=== PATIENT | male | born 1950 | race Caucasian/White ===

== ENCOUNTER → 2016-05-15 | Outpatient (CLI) | payer OTHER ==
[~2016-05-15] MED LIST: ISOVUE-370 76% 100ML VIAL (Q9967) As Ordered ONE
--- NOTE | 2016-05-15 09:36 | REP ---
CT study of the chest with IV contrast: History: Restaging CT, recurrent non-small cell lung carcinoma. Comparison chest CT study February 18, 2016. CT contrast dose: 75 ml of Isovue 370 is administered intravenously by auto injector. Findings: Digital buckle wire inserter radiograph and CT images demonstrate that the patient is status post right lower lobectomy. This patient has known tracheobronchial metastatic polyps. There is a lesion in the left posterolateral tracheal wall on axial CT slice 23 of 125 in series 202 of today's study. This has enlarged somewhat since the February 18, 2016 study and currently measures 13 mm in craniocaudal span by 8 mm in medial to lateral dimension. Previously, this measured 7-8 mm in craniocaudal span. There is a tiny polypoid nodule along the lateral wall of the distal trachea at the origin of the left mainstem bronchus and another on the medial wall of the left mainstem bronchus, 2 cm from the lebron. These appear to be unchanged. The previous study showed two other mid left mainstem bronchial polyps which are not seen today. In addition, tiny polyps seen in the anterior and right lateral wall of the upper trachea are no longer apparent. There is some air in the upper esophagus but I do not see an esophageal mass lesion. There is a stable normal-sized precarinal lymph node in the mediastinum. No adenopathy has developed. A stable normal-sized right hilar lymph node is again seen unchanged. Postoperative pleuroparenchymal changes are noted on the right post lower lobectomy with some fibrotic changes in the upper lobe. No new pulmonary parenchymal mass lesion is seen. There is no visible adrenal mass lesion. There is a cyst in the upper pole of the left kidney again noted measuring 3.2 cm in greatest diameter. The visualized upper abdominal structures are otherwise unremarkable. No bony destructive lesion seen. Impression: One of the known metastatic tracheal wall polyps appears a little larger. Two others are unchanged and there are several small polyps which are no longer visible. No other new finding. Signed by Ari Borden MD 05/15/2016 02:38 P
== END ==
LOC: M RAD 07:28
PROVIDERS: ATTEND Internal Medicine Medical Oncology
DX: C34.90 Malignant neoplasm of unspecified part of unspecified bronchus or lung (principal)
CPT/HCPCS: 71260; Q9967

== ENCOUNTER 2016-06-29 11:44 | Outpatient (CLI) | payer OTHER, MEDICARE ==
[~2016-06-29] VITALS: Ht 175.3 cm; Wt 55.0 kg
[2016-06-29] MEDS ORDERED: ACETAMINOPHEN TAB 650MG DOSE (2X325MG) PO ONE (12:15)
[2016-06-29] MEDS ORDERED: diphenhydrAMINE 25 MG CAP PO ONE (12:15)
[2016-06-29 13:15] VITALS: BP 145/80
[2016-06-29] MEDS ORDERED: SODIUM CHLORIDE 0.9% INJ 10 ML SYR IV PRN (18:00)
== END 2016-06-29 18:50 ==
LOC: M OPCLI4PR 11:44 → M MSPAV 11:49 → M OPCLI4PR 18:50
PROVIDERS: ATTEND Internal Medicine Medical Oncology
DX: D64.81 Anemia due to antineoplastic chemotherapy (principal)
CPT/HCPCS: 36430; 86850; 86900; 86901; 86920; P9016

== ENCOUNTER → 2016-06-29 | Outpatient (REF) | payer OTHER | LOC: M LAB REF 09:36 | PROVIDERS: ATTEND Nurse Practitioner Family | DX: D64.81 Anemia due to antineoplastic chemotherapy (principal) ==

== ENCOUNTER → 2016-07-13 | Outpatient (CLI) | payer OTHER ==
--- NOTE | 2016-07-13 13:10 | REP ---
Clinical: History of squamous cell carcinoma. Technique: Axial contrast enhanced images from the thoracic inlet to the upper abdomen using 100 ml Isovue 370 intravenous contrast material with coronal and sagittal re-formations. Comparison: 05/15/2016, 02/18/2016. Findings: Pleuroparenchymal changes involving the right hemithorax are essentially unchanged. The left hemithorax is well-aerated and clear with a small apical medial stable bullous measuring approximately 2.4 cm maximal diameter. The mediastinum including heart/pericardium and thoracic aorta is unchanged. Subcentimeter lymph nodes are nonspecific and similar to prior examination. No focal osseous abnormality. Impression: Pleuroparenchymal changes involving the right hemithorax remain relatively stable. No obvious acute process or evidence for recurrence/metastatic disease. Consider PET/CT for further investigation and follow-up if necessary. Signed by Golden Harper MD 07/13/2016 01:01 P
== END ==
LOC: M RAD 12:30
PROVIDERS: ATTEND Nurse Practitioner Family
DX: C34.11 Malignant neoplasm of upper lobe, right bronchus or lung (principal)
CPT/HCPCS: 71260; Q9967

== ENCOUNTER → 2016-09-02 | Outpatient (CLI) | payer OTHER, MEDICARE ==
--- NOTE | 2016-09-02 16:34 | REP ---
PET/CT: History: Restaging lung carcinoma. 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 Tracheobronchial recurrence. Chemotherapy. Comparisons: Comparison prior study from 02/05/2016 and 05/03/2015. There is a chest CT study is from 07/13/2016. TECHNIQUE: 71 minutes following the intravenous injection of a 8.7 mCi dose of F-18 FDG, three-dimensional PET scintigraphy is acquired from the skull base to the proximal thighs. Triplanar noncontrast CT scanning is acquired through the same anatomic range for attenuation correction, and image registration with scan parameters optimized to minimize radiation exposure to the patient. PET scintigraphy and CT datasets were fused and displayed on a workstation with multiplanar and projection display capability. PET/CT Findings: I am informed by the technologist that just following the radiotracer injection there was some leakage of the patient's intravenous access device producing a skin contamination of the left upper extremity and shoulder region. There are small bilateral pleural effusions. This is new finding on the left and the left pleural effusion is larger than the right. No hypermetabolic FDG accumulation is seen in association with the left pleural fluid. The previously noted tracheobronchial metastatic foci are again visible and remain hypermetabolic. The largest of these is a posterior wall lesion in the upper trachea just above the level of the transverse aorta. There is had a FDG standard uptake value of 7.7 previously. Today this has increased to 13.9. The lesion appears increased in size from the 02/05/2016 prior study as well and measures 1.5 cm along the posterior wall of the trachea. A second smaller lesion is again seen along the right anterolateral wall of the trachea at the same level above the aortic arch. This appears a little larger than on the prior study as well. Maximum standard uptake value is 6.2. Two other hypermetabolic tracheobronchial nodules are seen involving the origin of the left mainstem bronchus and the mainstem bronchus itself. The largest of these has a maximum standard uptake value of 6.4. It appears to have progressed in size and avidity. No new focus of hypermetabolic tracheobronchial uptake is seen. There is a new pulmonary nodule in the right upper lobe on page 68 of [address] study done in conjunction with the PET scintigraphy. This measures 5 mm in size. There is discernible although not frankly hypermetabolic uptake within this nodule. Maximizing SUV value is only 1.5 however this is very suspicious for a metastasis due to the fact that it is new and shows some avidity. No other pulmonary parenchymal uptake is seen no other pulmonary nodule is seen. No new hilar or mediastinal hypermetabolic george uptake is observed. Postoperative changes are seen in the right chest. No abnormal adrenal uptake is observed. In the abdomen and pelvis, there is normal hepatic, splenic, gastrointestinal, and genitourinary FDG accumulation. There is another focus of skin contamination uptake over the left costal margin. This is not felt to be significant. Impression: 1. New small left pleural effusion. 2. PET scintigraphy and CT changes of progression including increase in PET avidity and size in several of the known tracheobronchial tree metastatic nodules as well as a new right upper lobe pulmonary nodule. Signed by Ari Borden MD 09/02/2016 04:36 P
== END ==
LOC: M PLARAD 07:34
PROVIDERS: ATTEND Internal Medicine Medical Oncology
DX: C34.11 Malignant neoplasm of upper lobe, right bronchus or lung (principal); R91.8 Other nonspecific abnormal finding of lung field; Z90.2 Acquired absence of lung [part of]; Z92.21 Personal history of antineoplastic chemotherapy; Z87.891 Personal history of nicotine dependence
CPT/HCPCS: 78815; A9552

== ENCOUNTER → 2016-09-25 | Outpatient (REF) | payer OTHER, MEDICARE | LOC: M LAB REF 12:17 | PROVIDERS: ATTEND Internal Medicine Medical Oncology | DX: C34.90 Malignant neoplasm of unspecified part of unspecified bronchus or lung (principal); C79.89 Secondary malignant neoplasm of other specified sites ==

== ENCOUNTER → 2016-10-23 | Outpatient (REF) | payer OTHER, MEDICARE ==
[~2016-10-23] MED LIST changes: +ALB2.5NEB INH; +ALBU83IN INH; +AUGM875T28 PO; +CHLO1.4S2 MT; +CHLORSP MT; +DEXT30SUSP PO; +GUAI5ELAC PO; -ISOVUE-370 76% 100ML VIAL (Q9967) As Ordered ONE; +LIDO2.5C15 EXT; +LORA1TAB12 PO; +MAPA325T3 PO; +MORP1SOL SL; +ONDA4TAB6 PO; +PRED10TA2 PO; +PROAAER10 INH; +ROBI30SU PO; +SPIR12.9 INH; +TRAN1.5D2 TD; +VICKLIQ PO
== END ==
LOC: M LAB REF 13:56
PROVIDERS: ATTEND Internal Medicine Medical Oncology
DX: C34.90 Malignant neoplasm of unspecified part of unspecified bronchus or lung (principal)

== ENCOUNTER 2016-12-02 15:08 | Inpatient (IN) | payer OTHER, MEDICARE ==
[~2016-12-02] VITALS: Ht 175.3 cm; Wt 51.4 kg
[2016-12-02] MEDS ORDERED: PROAAER10 INH (15:24)
[2016-12-02] MEDS ORDERED: IPRATROPIUM 0.5MG/ALBUTEROL 2.5MG INH SOL UD 3ML (DUONEB)(J7620) NEB ONE ×2 (16:30→17:30)
[2016-12-02 16:49] LABS: BASO % 0.1 % (0.0-1.0); EOS # 0.2 K/mm3 (0.0-0.50); EOS % 1.3 % (0.0-3.0); LARGE UNSTAINED CELL # 0.1 K/mm3 (0.0-0.4); LARGE UNSTAINED CELL % 1.1 % (0.0-4.0); LYMPH # 1.1 K/mm3 (1.5-4.5); LYMPH % 7.1 % (24.0-44.0); MEAN CORPUSCULAR HEMOGLOBIN 29.1 pg (27.0-33.0); MEAN CORPUSCULAR HGB CONC 32.1 g/dl (32.0-36.5); MEAN CORPUSCULAR VOLUME 90.8 fl (80.0-96.0); MONO # 0.5 K/mm3 (0.0-0.8); MONO % 3.7 % (0.0-5.0); NEUTROPHILS # 11.4 K/mm3 (1.8-7.7); NEUTROPHILS % 86.7 % (36.0-66.0); PLATELET COUNT, AUTOMATED 328 k/mm3 (150-450); RED CELL DISTRIBUTION WIDTH 14.6 % (11.5-14.5); WHITE BLOOD COUNT 13.1 K/mm3 (4.0-10.0)
[2016-12-02 16:55] LABS: INR 0.97
[2016-12-02 17:12] LABS: ALBUMIN 3.3 GM/DL (3.2-5.2); ALBUMIN/GLOBULIN RATIO 0.75 (1.00-1.93); ALKALINE PHOSPHATASE 94 U/L (45-117); ALT/SGPT 14 U/L (12-78); ANION GAP 11 MEQ/L (8-16); AST/SGOT 7 U/L (15-37); BILIRUBIN,DIRECT 0.1 MG/DL (0.0-0.2); BILIRUBIN,TOTAL 0.4 MG/DL (0.2-1.0); BLOOD UREA NITROGEN 11 MG/DL (7-18); CARBON DIOXIDE LEVEL 24 MEQ/L (21-32); CHLORIDE LEVEL 104 MEQ/L (98-107); CREATININE FOR GFR 0.92 MG/DL (0.70-1.30); FREE T4 1.25 NG/DL (0.76-1.46); GLOMERULAR FILTRATION RATE > 60.0 (>49); GLUCOSE, FASTING 114 MG/DL (80-110); POTASSIUM SERUM 4.9 MEQ/L (3.5-5.1); SODIUM LEVEL 139 MEQ/L (136-145); TOTAL PROTEIN 7.7 GM/DL (6.4-8.2)
[2016-12-02] MEDS ORDERED: methylPREDNISolone INJ 125 MG/2 ML VIAL (J2930) IV ONE (17:30)
[2016-12-02] MEDS ORDERED: ISOVUE-370 76% 100ML VIAL (Q9967) As Ordered ONE (17:33)
--- NOTE | 2016-12-02 18:02 | REP ---
TWO VIEW CHEST: Two views of the chest are performed and compared to prior studies of 03/02/2016 and 08/08/2015. Chronic pleural opacity is seen on the right with elevation of the right hemidiaphragm. There is no change since prior studies dating back to 08/08/2015. The heart is not enlarged. Mediastinal silhouette is unchanged. Right Mediport catheter is seen with the tip at the junction of the superior vena cava and right atrium. IMPRESSION: Chronic pleural and parenchymal opacities in the right lung, unchanged since 08/08/2015 exam. Signed by Bacilio Wilson MD 12/03/2016 01:29 P
--- NOTE | 2016-12-02 20:10 | REPUSA ---
HISTORY: SOB. Comparison is made to previous CT of chest dated 07/13/16. There is a reported history of squamous cell carcinoma in the lung and status post right partial lo bectomy. TECHNIQUE: Axial CT imaging of chest with sagittal and coronal reformatted imaging with CTA protocol, with intravenous contrast enhancement. DLP= 467.7 mGy-cm. FINDINGS: There is ectasia of the ascending thoracic aorta measuring 3.4 cm. There is no evidence of thoracic aortic aneurysm or dissection. No filling defects are seen in the pulmonary arteries and t here is no detectable evidence of pulmonary embolism. Mediastinal windows demonstrate prominent inspissated tracheal secretions at the thoracic inlet, resu lting in partial thoracic obstruction, best seen on images 46-54. There is increased soft tissue den sity extending from the right mainstem bronchus in the mediastinum along the right paraspinal region to the right lung base over a length of approximately 8 cm and thickness of 1.0 cm in the mediastinu m and 2.2 cm at the right medial lung base. There appears to be circumferential soft tissue mass den sity developed around the distal right mainstem bronchus seen on images 43 -48, and there is now comp lete occlusion of the right middle lobe bronchus with consolidation in the right middle lobe consiste nt with malignant obstruction and postobstructive consolidation and pneumonia. The hilar malignant m ass also circumferentially surrounds but does not occlude the right upper lobe bronchus. There is no significant change in the fibrocystic scarring at the right apex. Findings are consistent with recu rrent lung carcinoma, and follow-up with PET/CT scan is suggested if indicated. Left lung demonstrates a subpleural bullous lesion measuring 2.6 x 1.4 cm, and severe COPD, with no s uspicious pulmonary mass, consolidation, pneumothorax, or pleural effusion seen, with no significant change from previous examination. No lytic destructive skeletal metastatic lesions are seen in the chest. There is a benign 3 cm cyst in the left kidney. No other mass or abnormal fluid collection is seen in the upper abdomen. IMPRESSION: 1. No detectable evidence of pulmonary embolism or thoracic aortic dissection. There is 3.4 cm ectasia of the ascending thoracic aorta. 2. There is development of diffuse malignant mass extending from the mediastinum right mainstem bron chus around the right hilum now resulting in complete occlusion of the right middle lobe bronchus wit h postobstructive consolidation and pneumonia in the right middle lobe and circumferentially surround ing the right upper lobe without complete occlusion. Follow-up with PET/CT scan is suggested if hilda cated. 3. Severe COPD with no change in the left lung. 4. Prominent tracheal mucosal secretions partially obstructing the lower trachea.
[2016-12-02] MEDS ORDERED: cefTRIAXone SOD 1 GM in D5W MINI-BAG PLUS 50 ML IV ONE (20:15)
[2016-12-02] MEDS ORDERED: AZITHROMYCIN INJ 500 MG, VIAL MATE ADAPTER 1 EACH in D5W 250 ML IV ONE (20:15)
[2016-12-02] MEDS ORDERED: SPIR12.9 INH (20:24)
[2016-12-02] MEDS ORDERED: LIDO2.5C15 EXT (20:24)
--- NOTE | 2016-12-02 20:35 | ECGEPIP ---
Stationary ECG Study [facility] - ED Test Date: 2016-12-02 Pat Name: AISHA DOUGLAS Department: Room: - Gender: M Systems Requirements Planner: sb : 1950 Requested By: PINKY Steinberg Order Number: [id number] Reading MD: Juana Walker Measurements Intervals [place] Rate: 110 P: 40 IA: 148 QRS: -54 QRSD: 85 T: 46 QT: 303 QTc: 410 Interpretive Statements SINUS TACHYCARDIA MARKED LEFT AXIS DEVIATION LAFB NONSPECIFIC ST T WAVE CHANGES CW 12/02/16 RATE INCREASED Electronically Signed On 12-02-2016 20:35:25 EDT by Juana Walker
[2016-12-02] MEDS ORDERED: ONDANSETRON 4MG/2ML VIAL (J2405) IV PRN (20:45)
[2016-12-02] MEDS ORDERED: LEVALBUTEROL 1.25 MG/0.5 ML CONCENTRATE NEB INH PRN (21:45)
--- NOTE | 2016-12-02 22:20 | HPE ---
DATE OF ADMISSION: 12/02/2016 PRIMARY CARE PHYSICIAN: Dr. Ying ONCOLOGIST: Dr. Elena Chi PROPERTY ECONOMIST: Dr. Jaya Rankin HOSPITALIST ATTENDING: Dr. Luis Carlos Hauser CHIEF COMPLAINT: Shortness of breath, cough. HISTORY OF PRESENT ILLNESS: This is a 66-year-old male with history of squamous cell cancer of the lungs status post right lower lobectomy stage 2b, gold stage 2 chronic obstructive pulmonary disease, status post empyema has complication of squamous cell lung CA, nicotine dependence, remote history of malaria, and history of alcohol use with 50 pack year history of smoking and chews tobacco presents to the emergency room of 1-2 week history of shortness of breath with subjective fevers and initially a dry cough which progressed to white-yellow sputum production. He denies any chest pain, pressure or tightness, palpitations , lightheadedness, unable to ambulate without much difficulty, unable to ambulate from the bed to the bathroom due to increasing difficulty with trouble breathing. Denies any diarrhea, abdominal pain, nausea, or documented fevers. Patient's PET scan on 09/02/2016 shows progression including increase in avidity and size in several of the known tracheal bronchial tree metastatic nodules as well as a new right upper lobe pulmonary nodule. He is currently changed on a new treatment per the patient and was found to have occlusion of the right main stem bronchus on CT of the chest in the emergency room to evaluate his cough and worsening shortness of breath. Hospitalist service was called for admission for post obstructive pneumonia secondary to malignancy with extension of the malignant mass from the mediastinum to the right stem bronchus around the right hilum with complete occlusion of the right middle lobe bronchus. Patient has had decreased appetite, no weight loss of weight gain, no insomnia, generalized weakness with worsening shortness of breath, hospitalist service was called for management. PAST MEDICAL HISTORY: 1. Squamous cell CA of the lung status post right lower lobectomy; most likely stage 2b. 2. Chronic obstructive pulmonary disease gold stage 2 status post empyema as complication of squamous cell lung cancer status post right lower lobectomy, nicotine dependence, remote history of malaria, history of alcohol use. ALLERGIES: No known drug allergies. HOME MEDICATIONS: - Albuterol two puffs inhaled every 4 hours - Lidocaine 2.5% cream to extremities every 2 weeks - tiotropium Spiriva inhaled twice a day SOCIAL HISTORY: Patient is DO NOT RESUSCITATE, DO NOT INTUBATE. 50 pack year history of smoking, chews tobacco, has three cans of beer a day. No elicit drug use, he lives with nephew Freddy Noguera, health care proxy. He has cats, dogs, and ferrets, no birds at home. No hobbies involving dust or chemicals. 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 FAMILY HISTORY: Mother is alive, father from a stroke in his 60's. Both brother and sister from heart disease. He has brothers with esophageal and bladder carcinoma. REVIEW OF SYSTEMS: 12 point review of system obtained, all of which negative, aside from positive findings in history of present illness. PHYSICAL EXAMINATION: Temperature 98.9, pulse 106, respiratory rate 22, blood pressure 140/84, 90% on 2 liters nasal cannula. Patient was 86% on room air. GENERAL: Patient appears cachectic, older than his stated age with multiple missing teeth, disheveled appearing, mild respiratory distress, able to speak in full sentences, in tripod position. No stridor, tracheal deviation or mass, no jugular venous distention. THYROID: No thyromegaly or cervical lymphadenopathy. LUNGS: Diminished bilaterally with dullness to percussion on the right mid lung. Occasional wheezing. ABDOMEN: Scaphoid, soft, non-tender, non-distended. Positive bowel sounds. No hepatosplenomegaly. CHEST: Well healed scars on the right. No induration. EXTREMITIES: No peripheral edema. No cyanosis. SKIN: Pale, cool but dry. MUSCULOSKELETAL: Patient has muscle wasting. Gait and motor function is 5/5. EKG sinus rhythm, ventricular rate of 110 without axis deviation. White count 13, hemoglobin 12, hematocrit 40, platelet count 328, 85% neutrophils, sodium 139, potassium 4.9, chloride 104, bicarbonate 24, BUN 11, creatinine 0.92, glucose 114, calcium 9, T-bilirubin 0.4, direct bilirubin 0.1. AST 7, ALT 13, alkaline phosphatase 94, total CK 58, MB fraction 1, troponin less than 0.02. BNP 73.4. Total protein 7.7, albumin 3.3, lipase 69, carcinoembryonic antigen 0.8, TSH 0.82, free T4 1.25. IMAGING STUDY: Chest x-ray chronic pleural and parenchymal opacity in the right lung unchanged since 08/08/[address] of the chest ectasia of the ascending thoracic aorta measuring 3.4 cm. No filling defects. No evidence of pulmonary embolism. Mediastinal windows demonstrating prominent inspissated tracheal secretions at the thoracic inlet resulting in partial thoracic obstruction, increased soft tissue density extending from right main stem bronchus into the mediastinum along the right paraspinal region to the right lung base over a length of approximately 8 cm and thickness of 1 cm in the mediastinum and 2.2 cm at the right medial lung base. Circumferential soft tissue mass density around the distal right main bronchus seen on images #43 to #48 with now complete occlusion of the right middle lobe bronchus with consolidation in the right middle lobe consistent with malignant obstruction and post obstructive consolidation and pneumonia. The hilar malignant mass also circumferentially surrounds but does not occlude the right upper lobe bronchus. No significant change in fibrocystic scarring at the right apex consistent with recurrent lung carcinoma and follow up with PET CT is suggested if indicated. Left lung demonstrates a subpleural bolus lesion measuring 2.6 x 1.4 cm and severe chronic obstructive pulmonary disease with no suspicious mass, consolidation, pneumothorax or pleural effusion with no significant change from previous exam. No lytic destructive skeletal metastatic lesions in the chest. There is a benign 3 cm cyst in the kidney. No other mass or abnormal fluid collection is seen in the upper abdomen. ASSESSMENT AND PLAN: This is a 66-year-old DO NOT RESUSCITATE, DO NOT INTUBATE patient with history of at least stage 2b squamous cell carcinoma of the right lower lobe status post resection in May 2015 with right lower lobectomy breeching in the viscera pleural of the tumor possibly into the parietal viscera without chemo or radiation in the past. He was sent for consideration for radiation locally to Dr. Sotelo, who repeated PET imaging showing hypermetabolic activity in the airway proximal trachea and left main stem bronchus. His postoperative course was complicated by empyema, followed by Dr. Rankin, Dr. Elena Chi and Dr. Ying now presents with worsening shortness of breath for 1-two weeks and cough productive of sputum found to have advancement of his lung CA and recurrence on repeat PET scan on 08/2016 and diffuse malignant mass extension into the mediastinum right main stem bronchus around the right hilum with complete occlusion of the right middle lobe bronchus with post obstructive consolidation and pneumonia of the right middle lobe and circumferentially surrounding the right upper lobe without complete occlusion. Patient is admitted as an inpatient for two midnights, assigned to Dr. Luis Carlos Hauser for the following issues. 1. Sepsis due to postobstructive pneumonia. Recurrent squamous cell carcinoma of the right lower lobe with recurrence and extension into the right main stem bronchus around the right hilum resulting in complete occlusion of the right middle lobe bronchus and postobstructive pneumonia. Patient will be treated with full supportive care due to his immunocompromised status and risk for Methicillin-resistant Staphylococcus aureus (MRSA) . He will be started on vancomycin and Zosyn. If no significant improvement may add antifungal after a few days if patient is febrile with worsening white count. Pharmacy has been consulted to renally dose according to his creatinine clearance. The case has been discussed with Software Team Leader air conditioning insulation installer , Dr. Sanchez , who recommends medical oncology to assess if there would be any benefit from targeted radiation treatmen. Per Dr. Storey, oncologist air conditioning insulation installer, patient's oncologist, Dr. Elena Chi, will see him in consult in the morning. At this time, he will be given low dose solumedrol 40 mg iv bid, nebulizer treatments, supplemental oxygen for his acute hypoxia, monitor clinically overnight. He is DO NOT RESUSCITATE, DO NOT INTUBATE, this is with a Medical Orders for Life-Sustaining Treatment (MOLST) form signed, full DO NOT RESUSCITATE, health care proxy Freddy ValenciaVidalLara has been made aware and conversation has taken place in the emergency room about his advanced directives. 2. Severe chronic obstructive pulmonary disease. No change in the left lung. Continue nebulizer treatments. Supplemental oxygen. History of nicotine dependence with 50 pack year history of smoking, chews tobacco. Nebulizer treatments for now. History of alcohol use. Patient has not drank alcohol but monitor for alcohol withdrawal. 3. Deep vein thrombosis prophylaxis with subcutaneous Heparin. 4. Protonix for GI prophylaxis. Patient will be assigned to Dr. Luis Carlos Hauser at 7:00 in the morning on 12/03/2016. CODE STATUS: DO NOT RESUSCITATE. DO NOT INTUBATE. MTDD
[2016-12-02 23:30] VITALS: BP 138/78
--- NOTE | 2016-12-02 23:44 | PHACANCOPD ---
PHARMACY VANCOMYCIN DOSING Pt Demographics Demographics Patient Age:66 , Weight:52.720 , Gender: male Adjusted Body Weight Events Past 24 Hours Events Past 24 Hours: NO: Dialysis, Diuretic Therapy, Change in CrCl, Fever, Elevation in WBC, Pending Diagnostics, Pending Procedures, Other Vancomycin Vancomycin Target Ranges: 15-20 mcg/ml Vancomycin Load Y/N: Yes Load Dose Date Time Vancomycin Load Dose: 1GM Date: 12/03 Time: 2AM Vancomycin Dose Date: 12/03/16. Current Vancomycin Dose: [750 MG IV Q12H start 08:00] Intermittent Dosing?: No Labs Labs Laboratory Tests 12/02/16 16:29 Red Blood Count 4.41, Mean Corpuscular Volume 90.8, Mean Corpuscular Hemoglobin 29.1, Mean Corpuscular Hemoglobin Concent 32.1, Red Cell Distribution Width 14.6 H, Neutrophils (%) (Auto) 86.7 H, Lymphocytes (%) (Auto) 7.1 L, Monocytes ( %) (Auto) 3.7, Eosinophils (%) (Auto) 1.3, Basophils (%) (Auto) 0.1, Neutrophils # (Auto) 11.4 H, Lymphocytes # (Auto) 1.1 L, Monocytes # (Auto) 0.5 , Eosinophils # (Auto) 0.2, Basophils # (Auto) 0.0 Creatinine Clearance Date:12/02/16. Creatinine Clearance: . Assessment and Plan Maintaining Current Dose?: No Reason for dose change: Other Pharmacist Note Pharmacist Note Date: 12/02/16. Pharm.D. 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 ZOSYN 3.375GM IV Q6H start at 00:00 12/03 THEN VANCO 1GM LOAD 2AM 12/03/16 FOLLOWED BY 750MG IV Q12H STARTING AT 8AM 12/03/16 A VANCO TROUGH WILL FOLLOW ONCE AT [facility] Dec 02, 2016 23:44
[2016-12-03] MEDS: PIPERACILLIN/TAZOBACTAM SOD 3.375 GM in D5W MINI-BAG PLUS 50 ML IV SCH ×4 (01:22→18:45)
[2016-12-03] MEDS ORDERED: VANCOMYCIN HCL 1,000 MG, VIAL MATE ADAPTER 1 EACH in D5W 250 ML IV ONE (02:00)
[2016-12-03] MEDS: LEVALBUTEROL 1.25 MG/0.5 ML CONCENTRATE NEB INH SCH ×7 (03:35→23:31)
[2016-12-03 03:58] VITALS: BP 119/73
[2016-12-03] MEDS: methylPREDNISolone INJ 125 MG/2 ML VIAL (J2930) IV SCH ×2 (05:16→18:45)
[2016-12-03] MEDS: HEPARIN SOD (PORCINE) 5000 UNITS/ML VIAL SC SCH ×3 (05:17→21:26)
[2016-12-03 05:43] LABS: BASO % 0.1 % (0.0-1.0); EOS # 0.2 K/mm3 (0.0-0.50); EOS % 1.1 % (0.0-3.0); LARGE UNSTAINED CELL % 0.2 % (0.0-4.0); LYMPH # 0.9 K/mm3 (1.5-4.5); LYMPH % 5.3 % (24.0-44.0); MEAN CORPUSCULAR HEMOGLOBIN 29.3 pg (27.0-33.0); MEAN CORPUSCULAR HGB CONC 32.8 g/dl (32.0-36.5); MEAN CORPUSCULAR VOLUME 89.2 fl (80.0-96.0); MONO # 0.4 K/mm3 (0.0-0.8); MONO % 2.3 % (0.0-5.0); NEUTROPHILS # 14.8 K/mm3 (1.8-7.7); PLATELET COUNT, AUTOMATED 331 k/mm3 (150-450); RED CELL DISTRIBUTION WIDTH 14.6 % (11.5-14.5); WHITE BLOOD COUNT 16.2 K/mm3 (4.0-10.0)
[2016-12-03 06:00] LABS: ANION GAP 10 MEQ/L (8-16); BLOOD UREA NITROGEN 15 MG/DL (7-18); CALCIUM LEVEL 9.2 MG/DL (8.8-10.2); CARBON DIOXIDE LEVEL 23 MEQ/L (21-32); CHLORIDE LEVEL 103 MEQ/L (98-107); CREATININE FOR GFR 0.93 MG/DL (0.70-1.30); GLOMERULAR FILTRATION RATE > 60.0 (>49); GLUCOSE, FASTING 146 MG/DL (80-110); POTASSIUM SERUM 4.1 MEQ/L (3.5-5.1); SODIUM LEVEL 136 MEQ/L (136-145)
[2016-12-03] MEDS: VANCOMYCIN HCL 750 MG, VIAL MATE ADAPTER 1 EACH in D5W 250 ML IV SCH ×2 (07:40→20:37)
[2016-12-03 07:54] VITALS: BP 133/82
[2016-12-03] MEDS: PANTOPRAZOLE 40MG INJ (PROTONIX) (C9113) IV SCH (08:03)
[2016-12-03] MEDS ORDERED: TIOTROPIUM INHALER/CAPSULE (SPIRIVA) INH SCH (09:00)
[2016-12-03 12:13] VITALS: BP 118/70
--- NOTE | 2016-12-03 13:20 | IPNPDOC ---
Subjective Date Seen The patient was seen on 12/03/16. Subjective Chief Complaint/HPI Patient seen and examined at bedside this morning. States that his breathing is relatively comfortable while at rest. Denies any other acute complaints at this time. Objective Physical Examination General Exam: Positive: Alert, Cooperative, No Acute Distress, Other ( Bitemporal wasting noted) ENT Exam: Positive: Atraumatic, Mucous membr. 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 Presents with worsening shortness of breath and CT scan of the chest with recurrence and extension into the right mainstem bronchus around the right hilum resulting in complete occlusion of the right middle lobe bronchus in the background of severe COPD of the left lung. Sputum culture ordered Blood cultures pending The patient has been covered empirically with Vancomycin and Zosyn IV steroids have also been added given the patient's underlying history of COPD Cont levalbuterol, Spiriva At this time, the patient is resting comfortably on 2L of O2 via NC. SOB occurs mostly on any exertion. The patient follows with Dr. Chi of oncology, and she has been consulted for further delineation of treatment options Severe COPD Cont Levalbuterol, Spiriva IV Steroids DVT Prophylaxis Heparin HI Code Status: DNR/DNI VS, I&O, 24H, [facility] Vital Signs/I&O Vital Signs Date Time Temp Pulse Resp B/P (MAP) Pulse Ox O2 Delivery O2 Flow Rate FiO2 12/03/16 12:13 98.5 100 19 118/70 (86) 91 Nasal Cannula 2.0 I&O- Last 24 Hours up to 6 AM 12/03/16 06:00 Intake Total 550 ml Output Total 100 ml Balance 450 ml Laboratory Data 24H LABS Laboratory Tests 2 12/02/16 16:29: White Blood Count 13.1H, Red Blood Count 4.41, Hemoglobin 12.8L, Hematocrit 40.0L, Mean Corpuscular Volume 90.8, Mean Corpuscular Hemoglobin 29.1, Mean Corpuscular Hemoglobin Concent 32.1, Red Cell Distribution Width 14.6H, Platelet Count 328, Neutrophils (%) (Auto) 86.7H, Lymphocytes (%) (Auto) 7.1L, Monocytes (%) (Auto) 3.7, Eosinophils (%) (Auto) 1.3, Basophils (%) (Auto) 0.1, Neutrophils # (Auto) 11.4H, Lymphocytes # (Auto) 1.1L, Monocytes # (Auto) 0.5, Eosinophils # (Auto) 0.2, Basophils # (Auto) 0.0, Large Unclassified Cells % 1.1 , Large Unclassified Cells # 0.1, Prothrombin Time 13.0, Prothromb Time International Ratio 0.97, Activated Partial Thromboplast Time 34.3, Anion Gap 11 , Glomerular Filtration Rate > 60.0, Calcium Level 9.0, Aspartate Amino Transf ( AST/SGOT) 7L, Alanine Aminotransferase (ALT/SGPT) 14, Alkaline Phosphatase 94, Total Bilirubin 0.4, Direct Bilirubin 0.1, Total Creatine Kinase 58, Creatine Kinase MB 1.0, Creatine Kinase MB Relative Index 1.72, Troponin I < 0.02, B- Type Natriuretic Peptide 73.4, Total Protein 7.7, Albumin 3.3, Albumin/Globulin Ratio 0.75L, Lipase 69L, Thyroid Stimulating Hormone (TSH) 0.484, Free Thyroxine 1.25 12/03/16 00:26: Lactic Acid Level 3.1*H 12/03/16 03:57: 12/03/16 05:25: White Blood Count 16.2H, Red Blood Count 4.17L, Hemoglobin 12.2L, Hematocrit 37.3L, Mean Corpuscular Volume 89.2, Mean Corpuscular Hemoglobin 29.3, Mean Corpuscular Hemoglobin Concent 32.8, Red Cell Distribution Width 14.6H, Platelet Count 331, Neutrophils (%) (Auto) 91.0H, Lymphocytes (%) (Auto) 5.3L, Monocytes (%) (Auto) 2.3, Eosinophils (%) (Auto) 1.1, Basophils (%) (Auto) 0.1, Neutrophils # (Auto) 14.8H, Lymphocytes # (Auto) 0.9L, Monocytes # (Auto) 0.4, Eosinophils # (Auto) 0.2, Basophils # (Auto) 0.0, Large Unclassified Cells % 0.2 , Large Unclassified Cells # 0.0, Anion Gap 10, Glomerular Filtration Rate > 60.0, Calcium Level 9.2, Lactic Acid Followup at 4 Hours 1.2, Blood Urea Nitrogen 15, Creatinine 0.93, Sodium Level 136, Potassium Level 4.1, Chloride Level 103, Carbon Dioxide Level 23 CBC/BMP Laboratory Tests 12/02/16 16:29 Red Blood Count 4.41, Mean Corpuscular Volume 90.8, Mean Corpuscular Hemoglobin 29.1, Mean Corpuscular Hemoglobin Concent 32.1, Red Cell Distribution Width 14.6 H, Neutrophils (%) (Auto) 86.7 H, Lymphocytes (%) (Auto) 7.1 L, Monocytes ( %) (Auto) 3.7, Eosinophils (%) (Auto) 1.3, Basophils (%) (Auto) 0.1, Neutrophils # (Auto) 11.4 H, Lymphocytes # (Auto) 1.1 L, Monocytes # (Auto) 0.5 , Eosinophils # (Auto) 0.2, Basophils # (Auto) 0.0 12/03/16 05:25 Red Blood Count 4.17 L, Mean Corpuscular Volume 89.2, Mean Corpuscular Hemoglobin 29.3, Mean Corpuscular Hemoglobin Concent 32.8, Red Cell Distribution Width 14.6 H, Neutrophils (%) (Auto) 91.0 H, Lymphocytes (%) (Auto ) 5.3 L, Monocytes (%) (Auto) 2.3, Eosinophils (%) (Auto) 1.1, Basophils (%) ( Auto) 0.1, Neutrophils # (Auto) 14.8 H, Lymphocytes # (Auto) 0.9 L, Monocytes # (Auto) 0.4, Eosinophils # (Auto) 0.2, Basophils # (Auto) 0.0, Calcium Level 9.2 Microbiology Microbiology 12/03/16 Blood Culture, Received Pending 12/03/16 Blood Culture, Received Pending 12/03/16 Gram Stain - Final, Resulted 12/03/16 Sputum Culture, Resulted Pending 12/02/16 Influenza Virus Type A Antigen - Final, Complete 12/02/16 Influenza Virus Type B Antigen - Final, Complete KRISTEN MCFARLAND MD Dec 03, 2016 13:20
[2016-12-03 16:00] VITALS: BP 122/66
[2016-12-03 19:48] VITALS: BP 114/68
[2016-12-03] MEDS: TIOTROPIUM INHALER/CAPSULE (SPIRIVA) INH SCH (21:10)
[2016-12-03 23:59] VITALS: BP 124/72
[2016-12-04] MEDS: PIPERACILLIN/TAZOBACTAM SOD 3.375 GM in D5W MINI-BAG PLUS 50 ML IV SCH ×4 (00:11→17:03)
[2016-12-04] MEDS: LEVALBUTEROL 1.25 MG/0.5 ML CONCENTRATE NEB INH SCH ×6 (03:24→23:59)
[2016-12-04 04:00] VITALS: BP 126/80
[2016-12-04 05:36] LABS: EOS # 0.3 K/mm3 (0.0-0.50); EOS % 1.4 % (0.0-3.0); LARGE UNSTAINED CELL # 0.2 K/mm3 (0.0-0.4); LARGE UNSTAINED CELL % 0.7 % (0.0-4.0); LYMPH % 3.9 % (24.0-44.0); MEAN CORPUSCULAR HEMOGLOBIN 29.2 pg (27.0-33.0); MEAN CORPUSCULAR HGB CONC 32.6 g/dl (32.0-36.5); MEAN CORPUSCULAR VOLUME 89.6 fl (80.0-96.0); MONO # 0.6 K/mm3 (0.0-0.8); MONO % 2.7 % (0.0-5.0); NEUTROPHILS # 19.8 K/mm3 (1.8-7.7); NEUTROPHILS % 91.3 % (36.0-66.0); PLATELET COUNT, AUTOMATED 319 k/mm3 (150-450); RED CELL DISTRIBUTION WIDTH 15.1 % (11.5-14.5); WHITE BLOOD COUNT 21.6 K/mm3 (4.0-10.0)
[2016-12-04 05:48] LABS: ANION GAP 11 MEQ/L (8-16); BLOOD UREA NITROGEN 21 MG/DL (7-18); CALCIUM LEVEL 8.6 MG/DL (8.8-10.2); CARBON DIOXIDE LEVEL 24 MEQ/L (21-32); CHLORIDE LEVEL 103 MEQ/L (98-107); CREATININE FOR GFR 0.97 MG/DL (0.70-1.30); GLOMERULAR FILTRATION RATE > 60.0 (>49); GLUCOSE, FASTING 120 MG/DL (80-110); POTASSIUM SERUM 4.1 MEQ/L (3.5-5.1); SODIUM LEVEL 138 MEQ/L (136-145)
[2016-12-04] MEDS: methylPREDNISolone INJ 125 MG/2 ML VIAL (J2930) IV SCH (05:54)
[2016-12-04] MEDS: HEPARIN SOD (PORCINE) 5000 UNITS/ML VIAL SC SCH ×3 (05:55→22:07)
[2016-12-04] MEDS: SLF 3 ML SYR IV SCH ×3 (06:00→19:41)
[2016-12-04] MEDS: TIOTROPIUM INHALER/CAPSULE (SPIRIVA) INH SCH ×2 (07:09→19:18)
[2016-12-04] MEDS: PANTOPRAZOLE 40MG INJ (PROTONIX) (C9113) IV SCH (07:53)
[2016-12-04] MEDS: VANCOMYCIN HCL 750 MG, VIAL MATE ADAPTER 1 EACH in D5W 250 ML IV SCH ×2 (07:53→19:41)
[2016-12-04 08:00] VITALS: BP 127/67
[2016-12-04] MEDS ORDERED: SLF 3 ML SYR IV PRN (09:00)
--- NOTE | 2016-12-04 10:35 | PHACANCOPD ---
PHARMACY VANCOMYCIN DOSING Pt Demographics Demographics Patient Age:66 , Weight:51.400 , Gender: male Adjusted Body Weight Vancomycin Vancomycin Target Ranges: 15-20 mcg/ml Vancomycin Load Y/N: Yes Load Dose Date Time Vancomycin Load Dose: 1GM Date: 12/03 Time: 2AM Vancomycin Dose Date: 12/03/16. Current Vancomycin Dose: [750 MG IV Q12H start 08:00] Intermittent Dosing?: No Labs Micro Microbiology 12/03/16 Blood Culture - Preliminary, Resulted No growth after 24 hours . All specim... 12/03/16 Blood Culture - Preliminary, Resulted No growth after 24 hours . All specim... 12/03/16 Gram Stain - Final, Resulted 12/03/16 Sputum Culture, Resulted Pending 12/02/16 Influenza Virus Type A Antigen - Final, Complete 12/02/16 Influenza Virus Type B Antigen - Final, Complete Creatinine Clearance Date:12/02/16. Creatinine Clearance: . Assessment and Plan Maintaining Current Dose?: Yes Reason for dose change: No Dose Change Pharmacist Note Pharmacist Note 12/04/16: Day #2 empiric zosyn/vanco tx. Scr today remains stable, WBC remains elevated (pt is also on steroids), patient is afebrile, and cultures are still pending. The patient has no PMH of MRSA or vanco use here at [facility]. I will schedule a trough to be drawn today, 12/04/16 @1900. We will continue to monitor and adjust dosing if needed. Date: 12/02/16. Pharm.D. note:66YO MALE, 69", 52KG ADMITTED WITH HAND ICER, Hx LUNG Ca. ZOSYN 3.375GM IV Q6H start at 00:00 12/03 THEN VANCO 1GM LOAD 2AM 12/03/16 FOLLOWED BY 750MG IV Q12H STARTING AT 8AM 12/03/16 A VANCO TROUGH WILL FOLLOW ONCE AT [facility] Dec 04, 2016 10:34
[2016-12-04 12:00] VITALS: BP 111/59
--- NOTE | 2016-12-04 16:10 | IPNPDOC ---
Subjective Date Seen The patient was seen on 12/04/16. Subjective Chief Complaint/HPI Patient seen and examined at the bedside this morning. States that he is resting comfortably and denies any complaints of shortness of breath. Objective Physical Examination General Exam: Positive: Alert, Cooperative, No Acute Distress, Other ( Bitemporal wasting noted) ENT Exam: Positive: Atraumatic, Mucous membr. 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 Presents with worsening shortness of breath and CT scan of the chest with recurrence and extension into the right mainstem bronchus around the right hilum resulting in complete occlusion of the right middle lobe bronchus in the background of severe COPD of the left lung. I did discuss the patient's CT Scan results with Dr. Payne of Pulmonary--no role for Bronchoscopy at this time Sputum, Blood cultures unrevealing thus far Empiric Abx therapy continued Patient also started on Prednisone 50mg for possible Pneumonitis as per Dr. Chi of Oncology Cont levalbuterol, Spiriva At this time, the patient is resting comfortably on 2L of O2 via NC. SOB occurs mostly on any exertion. The patient follows with Dr. Chi of oncology, her input is appreciated Severe COPD Cont Levalbuterol, Spiriva PO Steroids DVT Prophylaxis Heparin SC Code Status: DNR/DNI Dispo-we will continue to monitor the patient's progress with empiric IV antibiotic therapy and by mouth steroids. PT on board for functional optimization. Anticipate discharge in the next 24-48 hours pending clinical improvement. VS, I&O, 24H, Fish[facility] Vital Signs/I&O Vital Signs Date Time Temp Pulse Resp B/P (MAP) Pulse Ox O2 Delivery O2 Flow Rate FiO2 12/04/16 12:10 Nasal Cannula 2.0 12/04/16 12:00 98.4 99 19 111/59 (76) 95 I&O- Last 24 Hours up to 6 AM 12/04/16 06:00 Intake Total 1115 ml Output Total 0 ml Balance 1115 ml Laboratory Data 24H LABS Laboratory Tests 2 12/04/16 05:21: White Blood Count 21.6H, Red Blood Count 3.71L, Hemoglobin 10.9L, Hematocrit 33.3L, Mean Corpuscular Volume 89.6, Mean Corpuscular Hemoglobin 29.2, Mean Corpuscular Hemoglobin Concent 32.6, Red Cell Distribution Width 15.1H, Platelet Count 319, Neutrophils (%) (Auto) 91.3H, Lymphocytes (%) (Auto) 3.9L, Monocytes (%) (Auto) 2.7, Eosinophils (%) (Auto) 1.4, Basophils (%) (Auto) 0.0, Neutrophils # (Auto) 19.8H, Lymphocytes # (Auto) 1.0L, Monocytes # (Auto) 0.6, Eosinophils # (Auto) 0.3, Basophils # (Auto) 0.0, Large Unclassified Cells % 0.7 , Large Unclassified Cells # 0.2, Anion Gap 11, Glomerular Filtration Rate > 60.0, Blood Urea Nitrogen 21H, Creatinine 0.97, Sodium Level 138, Potassium Level 4.1, Chloride Level 103, Carbon Dioxide Level 24, Calcium Level 8.6L CBC/BMP Laboratory Tests 12/04/16 05:21 Red Blood Count 3.71 L, Mean Corpuscular Volume 89.6, Mean Corpuscular Hemoglobin 29.2, Mean Corpuscular Hemoglobin Concent 32.6, Red Cell Distribution Width 15.1 H, Neutrophils (%) (Auto) 91.3 H, Lymphocytes (%) (Auto ) 3.9 L, Monocytes (%) (Auto) 2.7, Eosinophils (%) (Auto) 1.4, Basophils (%) ( Auto) 0.0, Neutrophils # (Auto) 19.8 H, Lymphocytes # (Auto) 1.0 L, Monocytes # (Auto) 0.6, Eosinophils # (Auto) 0.3, Basophils # (Auto) 0.0, Calcium Level 8.6 L Microbiology Microbiology 12/03/16 Blood Culture - Preliminary, Resulted No growth after 24 hours . All specim... 12/03/16 Blood Culture - Preliminary, Resulted No growth after 24 hours . All specim... 12/03/16 Gram Stain - Final, Resulted 8/10/17 Sputum Culture, Resulted Pending 12/02/16 Influenza Virus Type A Antigen - Final, Complete 12/02/16 Influenza Virus Type B Antigen - Final, Complete KRISTEN MCFARLAND MD Dec 04, 2016 16:10
[2016-12-04 20:00] VITALS: BP 115/61
--- NOTE | 2016-12-04 20:07 | PHACANCOPD ---
PHARMACY VANCOMYCIN DOSING Pt Demographics Demographics Patient Age:66 , Weight:51.400 , Gender: male Adjusted Body Weight Events Past 24 Hours Events Past 24 Hours: NO: Dialysis, Diuretic Therapy, Change in CrCl, Fever, Elevation in WBC, Pending Diagnostics, Pending Procedures, Other Vancomycin Vancomycin Target Ranges: 15-20 mcg/ml Vancomycin Load Y/N: Yes Load Dose Date Time Vancomycin Load Dose: 1GM Date: 12/03 Time: 2AM Vancomycin Dose Date: 12/07/16. Change current Vancomycin Dose to: [1gm IV Q12H start 04:00 ] Intermittent Dosing?: No Labs Labs Laboratory Tests Test 12/04/16 19:14 Vancomycin Level Trough 12.2 UG/ML (10.0-20.0) Laboratory Tests 12/04/16 05:21 Red Blood Count 3.71, Mean Corpuscular Volume 89.6, Mean Corpuscular Hemoglobin 29.2, Mean Corpuscular Hemoglobin Concent 32.6, Red Cell Distribution Width 15.1 , Neutrophils (%) (Auto) 91.3, Lymphocytes (%) (Auto) 3.9, Monocytes (%) (Auto) 2.7, Eosinophils (%) (Auto) 1.4, Basophils (%) (Auto) 0.0, Neutrophils # (Auto) 19.8, Lymphocytes # (Auto) 1.0, Monocytes # (Auto) 0.6, Eosinophils # (Auto) 0.3 , Basophils # (Auto) 0.0, Calcium Level 8.6 Micro Microbiology 12/03/16 Blood Culture - Preliminary, Resulted No growth after 24 hours . All specim... 12/03/16 Blood Culture - Preliminary, Resulted No growth after 24 hours . All specim... 12/03/16 Sputum Culture, Resulted Pending Creatinine Clearance Date:12/04/16. Creatinine Clearance: [>60 ml/min]. Assessment and Plan Maintaining Current Dose?: No Reason for dose change: Trough too low Pharmacist Note Pharmacist Note Date: 12/04/16. Pharm.D. 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 ZOSYN 3.375GM IV Q6H & VANCO 750MG IV Q12H. VANCO TROUGH THIS EVENING = 12.2 mcg/ml (GOAL 15-20 mcg/ml). SCR 0.97, CRCL >60 ml/min. BLOOD CULTURES ARE NEGATIVE AT THIS TIME 05/28, SPUTUM CULTURES REMAIN PENDING WE SHALL CHANGE HIS VANCO TO 1GM IV Q12H STARTING AT 4AM 12/05/16 AND CONSIDER A REPEAT A VANCO TROUGH WHEN AT [facility] Dec 04, 2016 20:07
[2016-12-04 23:59] VITALS: BP 121/71
[2016-12-05] MEDS: PIPERACILLIN/TAZOBACTAM SOD 3.375 GM in D5W MINI-BAG PLUS 50 ML IV SCH ×3 (01:49→18:19)
--- NOTE | 2016-12-05 03:18 | CR ---
DATE OF CONSULTATION: 12/04/2016 Dr. Luis Carlos Hauser requested medical oncology management recommendations for . Jakub Moreno admitted now with shortness of breath, pneumonia, likely cancer progression. Jakub Noguera is a 66-year-old man with history of squamous cell carcinoma involving the right lung diagnosed in 2015 in an outside hospital system, treated initially with right lower lobectomy in July 2015 at the [facility] ([place]). Six months later in January 2016 restaging PET demonstrated tracheal and left mainstem bronchial foci of recurrent cancer. Biopsy confirmed squamous cell carcinoma. He underwent six cycles of gemcitabine/carboplatin March 2016 through June 2016 with major response. However, in August 2016 there was evidence of recurrence with a new left pleural effusion (non hypermetabolic) and recurrent upper trachea, right anterior lateral trachea and left mainstem bronchi hypermetabolic foci. He started nivolumab immunotherapy 09/01/2016. He has been receiving this every 2 weeks. About 2 weeks ago, according to his nephew Freddy, his primary home based assistant, he began to have some coughing. This coughing has persisted and he came into the hospital 12/02, desaturated to 90% and nadiring at 86% with initial chest x-ray showing some chronic right lung opacities unchanged, but CT angiography showing interval development of a diffuse malignant mass extending from the mediastinum right mainstem bronchus around the right hilum with complete occlusion of the right middle lobe bronchus and postobstructive consolidation and pneumonia in the right middle lobe and circumferentially surrounding the right upper lobe without complete right upper lobe occlusion. Chronic obstructive pulmonary disease (COPD) changes. No pulmonary embolism. On antibiotics now for more than 24 hours, Jakub reports feeling better, his nephew Freddy says he is coughing much less. He has oxygen nasal cannula flowing. Mr. Noguera appears the way he always appears in the office, which is very thin and somewhat unkempt, but cheerful. He speaks in full sentences and is sitting up eating his dinner. PHYSICAL EXAMINATION: Temperature 97.3, blood pressure 122/66, heart rate 105, respiratory rate 18, nasal cannula 2 liters. Decreased breath sounds in the right mid and lower lung vale with some air movement in the right upper lung vale. Clear to auscultation in the left lung field. Dullness to percussion in the right lower, right mid and lower lung vale. Cardiac: S1, S2, mild tachycardia. No gallop. Abdomen: Scaphoid and soft, nontender. Extremities: No edema or asymmetry. LABORATORY DATA: WBC 16, hemoglobin/hematocrit 12 and 37 respectively, platelets 331, neutrophilia 91%. Blood cultures drawn 12/03 without gross influenza, screen negative. IMPRESSION: Likely progressive squamous cell carcinoma of right lung originally diagnosed 2016 status post right lower lobectomy with early recurrence involving the trachea, lower trachea and left mainstem bronchus recently on second-line therapy with nivolumab (immunotherapy) after initially responding to palliative chemotherapy, but with progression on observation. Reviewing the imaging, this is most likely disease progression complicated by postobstructive pneumonia. However, it has to be borne in mind that autoimmune pneumonitis is a common complex complication of immunotherapy treatment and I am recommending high-dose steroid treatment with 50 mg of prednisone by mouth daily as short-term interval therapy in addition to antibiotics. It is notable Jakub is improved on antibiotics and minimal supplemental oxygen supporting postobstructive pneumonia as part of his acute process. Should he improve well enough to go home, I would recommend continuing him on high-dose prednisone on discharge with short interval followup with me in the office so that I can taper him down, re-image and consider whether pneumonitis is playing a role or this is all disease progression. If disease progression, Jakub would be a candidate for third-line treatment. Today spontaneously, he expressed interest in trying chemotherapy again. He is quite cachectic. This is his baseline status, and unkempt, but in fact his performance status has been excellent throughout treatment. This is the first complication he has had and as long as his performance status is zero or one, he is a reasonable candidate for additional therapy depending on how well he is able to recover from this pneumonia. Finally for an acute decompensation, I would consider bronchoscopy. This has been discussed informally with Dr. Sanchez by Dr. Hauser. However, mucous plugging has to be borne in mind for an acute decompensation in a patient like this. I will continue to follow during this hospitalization. PLAN: 1. As outlined above, high-dose steroids 50 mg prednisone by mouth daily. 2. Continue antibiotics. 3. Rapid pulmonary evaluation for acute decompensation and/or consider CT angiography. 4. If the patient shows clinical improvement, I would strongly recommend his discharge on high-dose steroids with early followup in my office. Janae Balderas, nurse navigator, can be contacted to help coordinate an early appointment. NICK
[2016-12-05] MEDS: LEVALBUTEROL 1.25 MG/0.5 ML CONCENTRATE NEB INH SCH ×5 (04:00→19:39)
[2016-12-05 05:34] LABS: BASO % 0.1 % (0.0-1.0); EOS % 0.2 % (0.0-3.0); LARGE UNSTAINED CELL # 0.1 K/mm3 (0.0-0.4); LYMPH # 1.7 K/mm3 (1.5-4.5); LYMPH % 10.7 % (24.0-44.0); MEAN CORPUSCULAR HEMOGLOBIN 28.7 pg (27.0-33.0); MEAN CORPUSCULAR HGB CONC 31.8 g/dl (32.0-36.5); MEAN CORPUSCULAR VOLUME 90.4 fl (80.0-96.0); MONO # 0.7 K/mm3 (0.0-0.8); MONO % 4.9 % (0.0-5.0); NEUTROPHILS # 12.2 K/mm3 (1.8-7.7); NEUTROPHILS % 83.1 % (36.0-66.0); PLATELET COUNT, AUTOMATED 322 k/mm3 (150-450); RED CELL DISTRIBUTION WIDTH 14.8 % (11.5-14.5); WHITE BLOOD COUNT 14.7 K/mm3 (4.0-10.0)
[2016-12-05 05:44] LABS: ANION GAP 9 MEQ/L (8-16); BLOOD UREA NITROGEN 21 MG/DL (7-18); CALCIUM LEVEL 8.3 MG/DL (8.8-10.2); CARBON DIOXIDE LEVEL 26 MEQ/L (21-32); CHLORIDE LEVEL 107 MEQ/L (98-107); CREATININE FOR GFR 0.99 MG/DL (0.70-1.30); GLOMERULAR FILTRATION RATE > 60.0 (>49); GLUCOSE, FASTING 95 MG/DL (80-110); POTASSIUM SERUM 3.4 MEQ/L (3.5-5.1); SODIUM LEVEL 142 MEQ/L (136-145)
[2016-12-05] MEDS: VANCOMYCIN HCL 1,000 MG, VIAL MATE ADAPTER 1 EACH in D5W 250 ML IV SCH ×2 (05:53→16:38)
[2016-12-05] MEDS: HEPARIN SOD (PORCINE) 5000 UNITS/ML VIAL SC SCH ×3 (05:53→20:51)
[2016-12-05] MEDS: SLF 3 ML SYR IV SCH ×3 (05:54→20:51)
[2016-12-05] MEDS ORDERED: POTASSIUM CHLORIDE 10 MEQ SR TABLET PO ONE (06:15)
[2016-12-05] MEDS: TIOTROPIUM INHALER/CAPSULE (SPIRIVA) INH SCH ×2 (07:04→21:00)
[2016-12-05 08:00] VITALS: BP 120/74
--- NOTE | 2016-12-05 09:56 | IPN ---
MEDICAL ONCOLOGY INPATIENT FOLLOWUP DATE OF SERVICE: 12/04/2016 Jakub is seated upright in bed watching television, says he feels about the same as yesterday on 2 liters nasal cannula. He has discussed treatment options with Dr. Hauser and understands he has an endobronchial, endotracheal recurrence of his lung cancer. He and I have gone over what the treatment options are, including palliative radiation for obstructive symptoms, systemic chemotherapy, or no treatment. I have recommended high-dose prednisone 50 mg by mouth daily as empiric treatment for pulmonary pneumonitis, which can be a immune-mediated side effect of PD-L1 inhibitors, such as he has been on for many weeks. I agree with continuing antibiotics as well in the acute setting. IMPRESSION: Squamous cell carcinoma of the lung status post right upper lobectomy with endotracheal, endobronchial recurrence on second-line therapy with pembrolizumab with evidence of progression complicated by post obstructive pneumonia. Possible contributing factor of pneumonitis secondary to checkpoint inhibitor medication. RECOMMENDATIONS: 1. Continue antibiotics. 2. Continue prednisone 50 mg by mouth. Discharge patient on prednisone, and I will manage taper. 3. I will continue to discuss with the patient palliative treatment options, including systemic treatment, possible palliative radiation, but I would reserve radiation for progressive symptoms. As he is improving on antibiotics, I would hold this thought for the time being. MTDD
[2016-12-05] MEDS: PANTOPRAZOLE 40MG INJ (PROTONIX) (C9113) IV SCH (09:58)
[2016-12-05] MEDS: predniSONE 50 MG TAB PO SCH (09:58)
--- NOTE | 2016-12-05 11:51 | IPNPDOC ---
Subjective Date Seen The patient was seen on 12/05/16. Subjective Chief Complaint/HPI Patient seen and examined at the bedside this morning. States that he is resting comfortably, and is in no acute respiratory distress while at rest. Denies any acute overnight complaints at this time. Objective Physical Examination General Exam: Positive: Alert, Cooperative, No Acute Distress, Other ( Bitemporal wasting noted) ENT Exam: Positive: Atraumatic, Mucous membr. 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 Presents with worsening shortness of breath and CT scan of the chest with recurrence and extension into the right mainstem bronchus around the right hilum resulting in complete occlusion of the right middle lobe bronchus in the background of severe COPD of the left lung. I did discuss the patient's CT Scan results with Dr. Payne of Pulmonary--no role for Bronchoscopy at this time Sputum, Blood cultures unrevealing thus far Empiric Abx therapy continued Patient also on Prednisone 50mg for possible Pneumonitis as per Dr. Chi of Oncology--we will down taper this moving forward Cont levalbuterol, Spiriva At this time, the patient is resting comfortably on 2L of O2 via NC. SOB occurs mostly on any exertion. The patient follows with Dr. Chi of oncology, her input is appreciated Acute hypoxic failure 2/2 Progression of Squamos Cell Ca of the Lung Severe COPD Cont Levalbuterol, Spiriva PO Steroids DVT Prophylaxis Heparin SC Code Status: DNR/DNI Long-term prognosis poor Dispo-we will continue to monitor the patient's progress with empiric IV antibiotic therapy and by mouth steroids. PT on board for functional optimization. Anticipate discharge in the next 24-48 hours pending clinical improvement. VS, I&O, 24H, Fishbone Vital Signs/I&O Vital Signs Date Time Temp Pulse Resp B/P (MAP) Pulse Ox O2 Delivery O2 Flow Rate FiO2 12/05/16 09:56 Nasal Cannula 1.0 12/05/16 08:00 98.9 93 18 120/74 (46) 90 I&O- Last 24 Hours up to 6 AM 12/05/16 06:00 Intake Total 1120 ml Output Total 300 ml Balance 820 ml Laboratory Data 24H LABS Laboratory Tests 2 12/04/16 19:14: Vancomycin Level Trough 12.2 12/05/16 05:03: White Blood Count 14.7H, Red Blood Count 3.86L, Hemoglobin 11.1L, Hematocrit 34.9L, Mean Corpuscular Volume 90.4, Mean Corpuscular Hemoglobin 28.7, Mean Corpuscular Hemoglobin Concent 31.8L, Red Cell Distribution Width 14.8H, Platelet Count 322, Neutrophils (%) (Auto) 83.1H, Lymphocytes (%) (Auto) 10.7L, Monocytes (%) (Auto) 4.9, Eosinophils (%) (Auto) 0.2, Basophils (%) (Auto) 0.1, Neutrophils # (Auto) 12.2H, Lymphocytes # (Auto) 1.7, Monocytes # (Auto) 0.7, Eosinophils # (Auto) 0.0, Basophils # (Auto) 0.0, Large Unclassified Cells % 1.0 , Large Unclassified Cells # 0.1, Anion Gap 9, Glomerular Filtration Rate > 60.0 , Blood Urea Nitrogen 21H, Creatinine 0.99, Sodium Level 142, Potassium Level 3.4L, Chloride Level 107, Carbon Dioxide Level 26, Calcium Level 8.3L CBC/BMP Laboratory Tests 12/05/16 05:03 Red Blood Count 3.86 L, Mean Corpuscular Volume 90.4, Mean Corpuscular Hemoglobin 28.7, Mean Corpuscular Hemoglobin Concent 31.8 L, Red Cell Distribution Width 14.8 H, Neutrophils (%) (Auto) 83.1 H, Lymphocytes (%) (Auto ) 10.7 L, Monocytes (%) (Auto) 4.9, Eosinophils (%) (Auto) 0.2, Basophils (%) ( Auto) 0.1, Neutrophils # (Auto) 12.2 H, Lymphocytes # (Auto) 1.7, Monocytes # ( Auto) 0.7, Eosinophils # (Auto) 0.0, Basophils # (Auto) 0.0, Calcium Level 8.3 L Microbiology Microbiology 12/03/16 Blood Culture - Preliminary, Resulted No Growth after 48 hours. All Specime... 12/03/16 Blood Culture - Preliminary, Resulted No Growth after 48 hours. All Specime... 12/03/16 Gram Stain - Final, Resulted 12/03/16 Sputum Culture, Resulted Pending 12/02/16 Influenza Virus Type A Antigen - Final, Complete 12/02/16 Influenza Virus Type B Antigen - Final, Complete KRISTEN MCFARLAND MD Dec 05, 2016 11:51
[2016-12-05 16:00] VITALS: BP 138/92
[2016-12-05 20:00] VITALS: BP 142/78
[2016-12-05 23:59] VITALS: BP 148/84
[2016-12-06] MEDS: LEVALBUTEROL 1.25 MG/0.5 ML CONCENTRATE NEB INH SCH ×4 (00:03→11:01)
[2016-12-06] MEDS: PIPERACILLIN/TAZOBACTAM SOD 3.375 GM in D5W MINI-BAG PLUS 50 ML IV SCH ×2 (00:31→10:05)
[2016-12-06] MEDS: SLF 3 ML SYR IV SCH (04:43)
[2016-12-06] MEDS: VANCOMYCIN HCL 1,000 MG, VIAL MATE ADAPTER 1 EACH in D5W 250 ML IV SCH (04:43)
[2016-12-06] MEDS: HEPARIN SOD (PORCINE) 5000 UNITS/ML VIAL SC SCH (04:43)
[2016-12-06 05:11] LABS: BASO % 0.1 % (0.0-1.0); EOS # 0.1 K/mm3 (0.0-0.50); EOS % 1.1 % (0.0-3.0); LARGE UNSTAINED CELL # 0.2 K/mm3 (0.0-0.4); LARGE UNSTAINED CELL % 1.5 % (0.0-4.0); LYMPH # 1.8 K/mm3 (1.5-4.5); LYMPH % 16.5 % (24.0-44.0); MEAN CORPUSCULAR HEMOGLOBIN 29.5 pg (27.0-33.0); MEAN CORPUSCULAR HGB CONC 32.2 g/dl (32.0-36.5); MEAN CORPUSCULAR VOLUME 91.6 fl (80.0-96.0); MONO # 0.4 K/mm3 (0.0-0.8); MONO % 4.1 % (0.0-5.0); NEUTROPHILS # 7.7 K/mm3 (1.8-7.7); NEUTROPHILS % 76.7 % (36.0-66.0); PLATELET COUNT, AUTOMATED 305 k/mm3 (150-450); WHITE BLOOD COUNT 10.1 K/mm3 (4.0-10.0)
[2016-12-06 05:39] LABS: ANION GAP 10 MEQ/L (8-16); BLOOD UREA NITROGEN 17 MG/DL (7-18); CALCIUM LEVEL 8.4 MG/DL (8.8-10.2); CARBON DIOXIDE LEVEL 24 MEQ/L (21-32); CHLORIDE LEVEL 109 MEQ/L (98-107); CREATININE FOR GFR 0.91 MG/DL (0.70-1.30); GLOMERULAR FILTRATION RATE > 60.0 (>49); GLUCOSE, FASTING 103 MG/DL (80-110); POTASSIUM SERUM 3.4 MEQ/L (3.5-5.1); SODIUM LEVEL 143 MEQ/L (136-145)
[2016-12-06] MEDS: TIOTROPIUM INHALER/CAPSULE (SPIRIVA) INH SCH (07:20)
[2016-12-06] MEDS ORDERED: POTASSIUM CHLORIDE 10 MEQ SR TABLET PO ONE (07:45)
[2016-12-06 08:00] VITALS: BP 161/81
[2016-12-06] MEDS: predniSONE 50 MG TAB PO SCH (10:05)
[2016-12-06] MEDS: PANTOPRAZOLE 40MG INJ (PROTONIX) (C9113) IV SCH (10:05)
[2016-12-06 10:34] VITALS: BP 126/76
[2016-12-06] MEDS ORDERED: PRED10TA2 PO (11:44)
[2016-12-06] MEDS ORDERED: AUGM875T28 PO (11:44)
--- NOTE | 2016-12-06 15:16 | DS.PDOC ---
Discharge Summary General Date of Admission Dec 02, 2016 at 20:44 Date of Discharge 12/06/16 Specialist/Consultants Involve: Elena Chi MD Discharge Summary PROCEDURES PERFORMED DURING STAY: None. ADMITTING DIAGNOSES: 1. . Recurrence and extension of squamous cell lung carcinoma 2. . Post obstructive pneumonia 3. . Possible underlying radiation pneumonitis DISCHARGE DIAGNOSES: 1. . Recurrence and extension of squamous cell lung carcinoma 2. . Post obstructive pneumonia 3. . Possible underlying radiation pneumonitis COMPLICATIONS/CHIEF COMPLAINT: Lung Caner,Main Bronchus, Obstructive Pnemonia. HISTORY OF PRESENT ILLNESS: . 66-year-old male with past medical history of squamous cell carcinoma of the lung status post right lower lobectomy stage IIB,gold stage 2 chronic obstructive pulmonary disease, status post empyema has complication of squamous cell lung CA, nicotine dependence, remote history of malaria, and history of alcohol use with 50 pack year history of smoking and chews tobacco presented to the emergency room of 1-2 week history of shortness of breath with subjective fevers. The patient states that he has had worsening shortness of breath over the last 1-2 weeks which significantly limited his functional status. The patient recently had a PET scan done on 09/02/16 which showed progression of his underlying cancer including increase in avidity and size in several of the known tracheobronchial tree metastatic nodules as well as a new right upper lobe pulmonary nodule. A CT scan was performed in the ER, and this revealed postobstructive pneumonia secondary to malignancy with extension of the malignant mass from the mediastinum to the right stem bronchus around the right hilum with complete occlusion of the right middle lobe bronchus. The patient was subsequently admitted to the hospitalist service for further evaluation and management. During hospitalization, the patient was started on empiric antibiotic therapy. In addition, the pulmonary service was contacted regarding the patient's CAT scan results and possible bronchoscopy. As per pulmonary, bronchoscopy was not indicated in this patient's case. Dr. Chi of oncology was consulted as well. She recommended continuing antibiotics and starting the patient on a high-dose prednisone taper. The patient was started on empiric antibiotics as well as high -dose prednisone therapy. The patient states that his respiratory status has subsequently improved over the last 48 hours. At this time, the patient states that he is feeling much better and is eager to return home. The patient has been cleared by physical therapy. I have asked the patient to continue with the steroid taper, complete his course of antibiotics which have been switched over to by mouth, and to follow-up closely with Dr. Chi office within one week. In addition, I've advised the patient to follow-up with his primary care physician within one week. Should his condition worsen, or if he is to have an acute emergency he is to return to the ER for further evaluation and management. DISCHARGE MEDICATIONS: Please see below. ALLERGIES: Please see below. PHYSICAL EXAMINATION ON DISCHARGE: VITAL SIGNS: Please see below. General Exam: Positive: Alert, Cooperative, No Acute Distress, Other ( Bitemporal wasting noted) ENT Exam: Positive: Atraumatic, Mucous membr. moist/pink Neck Exam: Negative: JVD Chest Exam: Positive: Diminished Heart Exam: Positive: Rate Normal, Normal S1, Normal S2 Abdomen Exam: Positive: Soft, Negative: Tenderness Extremity Exam: Negative: Tenderness, Swelling Psych Exam: Positive: Oriented x 3 LABORATORY DATA: Please see below. IMAGING: HISTORY: SOB. Comparison is made to previous CT of chest dated 07/13/16. There is a reported history of squamous cell carcinoma in the lung and status post right partial lobectomy. TECHNIQUE: Axial CT imaging of chest with sagittal and coronal reformatted imaging with CTA protocol, with intravenous contrast enhancement. DLP= 467.7 mGy-cm. FINDINGS: There is ectasia of the ascending thoracic aorta measuring 3.4 cm. There is no evidence of thoracic aortic aneurysm or dissection. No filling defects are seen in the pulmonary arteries and there is no detectable evidence of pulmonary embolism. Mediastinal windows demonstrate prominent inspissated tracheal secretions at the thoracic inlet, resulting in partial thoracic obstruction, best seen on images 46-54. There is increased soft tissue density extending from the right mainstem bronchus in the mediastinum along the right paraspinal region to the right lung base over a length of approximately 8 cm and thickness of 1.0 cm in the mediastinum and 2.2 cm at the right medial lung base. There appears to be circumferential soft tissue mass density developed around the distal right mainstem bronchus seen on images 43 -48, and there is now complete occlusion of the right middle lobe bronchus with consolidation in the right middle lobe consistent with malignant obstruction and postobstructive consolidation and pneumonia. The hilar malignant mass also circumferentially surrounds but does not occlude the right upper lobe bronchus. There is no significant change in the fibrocystic scarring at the right apex. Findings are consistent with recurrent lung carcinoma, and follow-up with PET/CT scan is suggested if indicated. Left lung demonstrates a subpleural bullous lesion measuring 2.6 x 1.4 cm, and severe COPD, with no suspicious pulmonary mass, consolidation, pneumothorax, or pleural effusion seen, with no significant change from previous examination. No lytic destructive skeletal metastatic lesions are seen in the chest. There is a benign 3 cm cyst in the left kidney. No other mass or abnormal fluid collection is seen in the upper abdomen. IMPRESSION: 1. No detectable evidence of pulmonary embolism or thoracic aortic dissection. There is 3.4 cm ectasia of the ascending thoracic aorta. 2. There is development of diffuse malignant mass extending from the mediastinum right mainstem bronchus around the right hilum now resulting in complete occlusion of the right middle lobe bronchus with postobstructive consolidation and pneumonia in the right middle lobe and circumferentially surrounding the right upper lobe without complete occlusion. Follow-up with PET /CT scan is suggested if indicated. 3. Severe COPD with no change in the left lung. 4. Prominent tracheal mucosal secretions partially obstructing the lower trachea. PROGNOSIS: Long-term prognosis poor ACTIVITY: As tolerated. DIET: . Regular diet DISCHARGE PLAN: Home DISPOSITION: 01 Home, Self-Care. DISCHARGE INSTRUCTIONS: 1. . Follow-up with Dr. Chi of oncology within one week 2. . Follow-up with primary care physician within one week 3. . Return to the ER for any acute emergencies ITEMS TO FOLLOWUP ON ON OUTPATIENT: 1. . Complete antibiotic course, prednisone taper as prescribed DISCHARGE CONDITION: Stable. TIME SPENT ON DISCHARGE: Greater than 30 minutes. Vital Signs/I&Os Vital Signs Date Time Temp Pulse Resp B/P (MAP) Pulse Ox O2 Delivery O2 Flow Rate FiO2 12/06/16 10:34 96.8 94 20 126/76 (93) 94 Nasal Cannula 2.0 I&O- Last 24 Hours up to 6 AM 12/06/16 06:00 Intake Total 2630 ml Output Total 0 ml Balance 2630 ml Laboratory Data Labs 24H Laboratory Tests 2 12/06/16 04:48: White Blood Count 10.1H, Red Blood Count 3.84L, Hemoglobin 11.3L, Hematocrit 35.2L, Mean Corpuscular Volume 91.6, Mean Corpuscular Hemoglobin 29.5, Mean Corpuscular Hemoglobin Concent 32.2, Red Cell Distribution Width 15.0H, Platelet Count 305, Neutrophils (%) (Auto) 76.7H, Lymphocytes (%) (Auto) 16.5L, Monocytes (%) (Auto) 4.1, Eosinophils (%) (Auto) 1.1, Basophils (%) (Auto) 0.1, Neutrophils # (Auto) 7.7, Lymphocytes # (Auto) 1.8, Monocytes # (Auto) 0.4, Eosinophils # (Auto) 0.1, Basophils # (Auto) 0.0, Large Unclassified Cells % 1.5 , Large Unclassified Cells # 0.2 12/06/16 04:49: Anion Gap 10, Glomerular Filtration Rate > 60.0, Blood Urea Nitrogen 17, Creatinine 0.91, Sodium Level 143, Potassium Level 3.4L, Chloride Level 109H, Carbon Dioxide Level 24, Calcium Level 8.4L CBC/BMP Laboratory Tests 12/06/16 04:48 Red Blood Count 3.84 L, Mean Corpuscular Volume 91.6, Mean Corpuscular Hemoglobin 29.5, Mean Corpuscular Hemoglobin Concent 32.2, Red Cell Distribution Width 15.0 H, Neutrophils (%) (Auto) 76.7 H, Lymphocytes (%) (Auto ) 16.5 L, Monocytes (%) (Auto) 4.1, Eosinophils (%) (Auto) 1.1, Basophils (%) ( Auto) 0.1, Neutrophils # (Auto) 7.7, Lymphocytes # (Auto) 1.8, Monocytes # (Auto ) 0.4, Eosinophils # (Auto) 0.1, Basophils # (Auto) 0.0 12/06/16 04:49 Calcium Level 8.4 L Microbiology Microbiology 12/03/16 Blood Culture - Preliminary, Resulted No Growth after 72 hours. All specime... 12/03/16 Blood Culture - Preliminary, Resulted No Growth after 72 hours. All specime... 12/03/16 Gram Stain - Final, Complete 12/03/16 Sputum Culture - Final, Complete Pasteurella Multocida 12/02/16 Influenza Virus Type A Antigen - Final, Complete 12/02/16 Influenza Virus Type B Antigen - Final, Complete Discharge Medications Scheduled (Lidocaine/Prilocaine 2.5-2.5 %) 1 Cre Cre, 1 CRE EXT Q2WK, (Reported) PUTS ON PORT BEFORE INJECTION EVERY 2 WEEKS Amoxicillin/Clavulanate Potas (Augmentin 875-125 mg) 1 Tab Tab, 875 MG PO BID Prednisone (Prednisone) 10 Mg Tab, 10 MG PO TAPER Take 4 tabs daily x 3 days, then 3 tabs daily x 3 days, then 2 tabs daily x 3 days, then 1 tab daily x 3 days and stop Tiotropium [place] Monohydrate (Spiriva Respimat) 2.5 Mcg/Act Spr, 2 INHALATION INH BID, (Reported) Scheduled PRN Albuterol Sulfate (Proair Hfa) 108 Mcg/Act Aer, 2 PUFF INH Q4H PRN for SHORTNESS OF BREATH, (Reported) Allergies Coded Allergies: CI Pigment Blue 63 (Unverified Allergy, Intermediate, SOB, BURNED THROAT, 12/02/16) Chlorpheniramine (Unverified Allergy, Intermediate, SOB, BURNED THROAT, 12/02/16) Hydrocodone (Unverified Allergy, Intermediate, SOB, BURNED THROAT, 12/02/16) Red Dye (Unverified Allergy, Intermediate, SOB, BURNED THROAT, 12/02/16) Yellow Dye (Unverified Allergy, Intermediate, SOB, BURNED THROAT, 12/02/16) No Known Drug Allergy (Verified Allergy, Unknown, 03/02/16) KRISTEN MCFARLAND MD Dec 06, 2016 15:16
[2016-12-08 00:06] LABS: ORGANISM ID Not indicated. (.); SPECIMEN SOURCE Urine (.)
== END 2016-12-06 12:26 | disposition home or self-care (01) | DRG 180 ==
LOC: M ED 15:08 → M ED INP 20:44 → M PCU 23:28
PROVIDERS: ADMIT General Practice; ATTEND Internal Medicine
DX: C34.90 Malignant neoplasm of unspecified part of unspecified bronchus or lung (principal); J18.9 Pneumonia, unspecified organism; J70.0 Acute pulmonary manifestations due to radiation; J44.9 Chronic obstructive pulmonary disease, unspecified; F17.200 Nicotine dependence, unspecified, uncomplicated; Z66 Do not resuscitate; I77.810 Thoracic aortic ectasia; Z88.8 Allergy status to other drugs, medicaments and biological substances; Z79.899 Other long term (current) drug therapy; F17.220 Nicotine dependence, chewing tobacco, uncomplicated

== ENCOUNTER 2016-12-09 13:39 | Emergency (ER) | payer OTHER, MEDICARE ==
[~2016-12-09] VITALS: Ht 175.3 cm; Wt 52.3 kg
[~2016-12-09 13:39] MED LIST changes: -ALB2.5NEB INH; -ALBU83IN INH; -CHLO1.4S2 MT; -CHLORSP MT; -DEXT30SUSP PO; -GUAI5ELAC PO; -LORA1TAB12 PO; -MAPA325T3 PO; -MORP1SOL SL; -ONDA4TAB6 PO; -ROBI30SU PO; -TRAN1.5D2 TD; -VICKLIQ PO
[2016-12-09] MEDS ORDERED: methylPREDNISolone INJ 125 MG/2 ML VIAL (J2930) IV ONE (14:30)
[2016-12-09] MEDS: IPRATROPIUM 0.5MG/ALBUTEROL 2.5MG INH SOL UD 3ML (DUONEB)(J7620) NEB PRN ×2 (14:47→15:18)
[2016-12-09 14:52] LABS: ABG BASE EXCESS 1.8 (-2.0-2.0); ABG HCO3 25.3 MEQ/L (22.0-26.0); ABG PARTIAL PRESSURE CO2 36.2 mmHg (35.0-45.0); ABG PARTIAL PRESSURE O2 83.1 mmHg (75.0-100.0); ABG TOTAL CO2 26.5 MEQ/L (23.0-31.0); ABG pH (ARTERIAL) 7.463 UNITS (7.350-7.450)
[2016-12-09 15:10] LABS: ADD MANUAL DIFFER YES; MEAN CORPUSCULAR HEMOGLOBIN 29.3 pg (27.0-33.0); MEAN CORPUSCULAR HGB CONC 31.9 g/dl (32.0-36.5); MEAN CORPUSCULAR VOLUME 91.8 fl (80.0-96.0); PLATELET COUNT, AUTOMATED 376 k/mm3 (150-450); RED CELL DISTRIBUTION WIDTH 14.8 % (11.5-14.5); WHITE BLOOD COUNT 8.6 K/mm3 (4.0-10.0)
[2016-12-09 15:23] LABS: ALBUMIN/GLOBULIN RATIO 0.67 (1.00-1.93); ALKALINE PHOSPHATASE 79 U/L (45-117); ALT/SGPT 53 U/L (12-78); ANION GAP 10 MEQ/L (8-16); AST/SGOT 16 U/L (15-37); BILIRUBIN,DIRECT < 0.1 MG/DL (0.0-0.2); BILIRUBIN,TOTAL 0.2 MG/DL (0.2-1.0); BLOOD UREA NITROGEN 16 MG/DL (7-18); CARBON DIOXIDE LEVEL 27 MEQ/L (21-32); CHLORIDE LEVEL 103 MEQ/L (98-107); CREATININE FOR GFR 0.94 MG/DL (0.70-1.30); GLOMERULAR FILTRATION RATE > 60.0 (>49); GLUCOSE, FASTING 98 MG/DL (80-110); POTASSIUM SERUM 4.1 MEQ/L (3.5-5.1); SODIUM LEVEL 140 MEQ/L (136-145); THYROXINE (T4) 9.1 UG/DL (4.5-12.0); TOTAL PROTEIN 7.5 GM/DL (6.4-8.2)
--- NOTE | 2016-12-09 15:41 | REP ---
Portable chest x-ray: Semiupright AP view. History: Dyspnea and cough. Comparison chest x-ray December 02, 2016. Findings: EKG monitoring electrodes overlie the chest. An [id number] catheter is noted on the right as before. Right hemidiaphragm is elevated, unchanged. No new infiltrate is seen. The heart is not enlarged. The aorta is somewhat tortuous as before. Impression: Post thoracotomy changes on the right. Right-sided [id number]. No active disease. Signed by Ari Borden MD 12/09/2016 03:59 P
[2016-12-09 15:44] LABS: EOSINOPHILS 5 % (0-5)
[2016-12-09] MEDS ORDERED: ALBU83IN INH (16:18)
[2016-12-09 16:42] VITALS: BP 150/95
--- NOTE | 2016-12-11 08:37 | ECGEPIP ---
Stationary ECG Study [facility] - ED Test Date: 2016-12-09 Pat Name: AISHA DOUGLAS Department: Room: - Gender: M Administrative Tech: JT : [id number] Requested By: Franchesca Singleton Order Number: [id number] Reading MD: Franchesca Singleton Measurements Intervals [place] Rate: 88 P: 52 FL: 134 QRS: -40 QRSD: 98 T: 55 QT: 344 QTc: 417 Interpretive Statements SINUS RHYTHM MARKED LEFT AXIS DEVIATION DECREASED RATE 12/02/16 Electronically Signed On 12-11-2016 8:37:43 EDT by Franchesca Singleton
== END 2016-12-09 16:46 | disposition home or self-care (01) ==
LOC: M ED 13:39
DX: J44.9 Chronic obstructive pulmonary disease, unspecified (principal); C34.90 Malignant neoplasm of unspecified part of unspecified bronchus or lung; F17.210 Nicotine dependence, cigarettes, uncomplicated; Z92.21 Personal history of antineoplastic chemotherapy; Z88.5 Allergy status to narcotic agent; Z79.52 Long term (current) use of systemic steroids; Z79.899 Other long term (current) drug therapy; Z79.2 Long term (current) use of antibiotics
CPT/HCPCS: 36600; 71010; 80048; 80076; 82550; 82553; 82803; 83605; 83880; 84436; 84443; 84484; 85025; 87040; 93005; 93041; 94640; 96374; 99285; J2930

== ENCOUNTER → 2016-12-10 | Outpatient (CLI) | payer OTHER, MEDICARE ==
[~2016-12-10] MED LIST changes: +ALB2.5NEB INH; +ALBU83IN INH; +CHLO1.4S2 MT; +CHLORSP MT; +DEXT30SUSP PO; +GUAI5ELAC PO; +LORA1TAB12 PO; +MAPA325T3 PO; +MORP1SOL SL; +ONDA4TAB6 PO; +ROBI30SU PO; +TRAN1.5D2 TD; +VICKLIQ PO
--- NOTE | 2016-12-11 09:34 | RADONC ---
RADIATION ONCOLOGY NEW PATIENT CONSULTATION DATE: 12/10/2016 REFERRING PHYSICIAN: Dr. Chi AFFILIATED PHYSICIANS: Dr. Jaya Rankin, Case Preparer And Liner Dr. Ying, Primary care physician CHART NUMBER: [phone] DIAGNOSIS: Squamous cell carcinoma, right lower lobe, status post lobectomy at the [place] in May 2015; status post adjuvant chemotherapy in the form of gemcitabine and carboplatin, status post second line systemic therapy including nivolumab starting 09/01/2016; now with evidence of recurrence/progressive disease. ORIGINAL STAGE: IIB now progressive metastatic disease. KARNOFSKY: 70. PATIENT'S STATUS: DO NOT RESUSCITATE (DNR) and DO NOT INTUBATE. NARRATIVE: The patient is a 66-year-old female who has a known history of squamous cell carcinoma involving the right lower lobe which was resected at the [facility] in May of 2015. There was evidence of both parietal pleural invasion as well as visceral pleural through and through penetration at the time of pathologic review and he was staged a pathologic IIB. He was started on adjuvant chemotherapy under the direction of Dr. Chi and received a proposed six cycles of gemcitabine and carboplatin chemotherapy, although the patient claims he only received five of those intended six cycles secondary to low blood counts. Overall the chemotherapy was relatively well tolerated and the patient showed a significant amount of improvement following the administration of chemotherapy. Radiation oncology was consulted and obtained, and a PET scan was ordered on 09/02/2016 which unfortunately revealed progressive disease in the paratracheal area which tracheal metastasis which had increased in size and was PET avid. A new right upper lobe lesion was also noted and there was some evidence of right mainstem bronchial occlusion. The patient had clinical signs of progressive disease with loss of appetite, generalized weakness, and increasing shortness of breath. He has been admitted on multiple occasions because this progress shortness of breath and has had a diagnosis of pneumonia treated with antibiotics secondary to bronchial obstruction. His most recent CT scan had revealed almost complete obstruction of the right middle lobe bronchus with partial obstruction of the right upper lobe bronchial region and a questionable new lesion in the left lung. Radiation was not administered at the time of initial consolidation because of progressive disease and the patient was started on second line chemotherapy including nivolumab (09/01/2016) administered every 2 weeks. Nonetheless has stated the patient has shown radiographic evidence of progressive disease and clinically has required multiple admissions through the emergency room secondary to severe progressive dyspnea, coughing, and treatments for pneumonia with antibiotic therapy. After completing the most recent hospital admission the patient showed evidence of radiographic and clinical improvement, but returns today for evaluation of radiation oncology to help unobstruct his persistent obstructed right sided bronchial region. PAST MEDICAL HEALTH: He has been diagnosed as having squamous cell carcinoma involving the right lower lobe status post lobectomy. He carries a diagnosis of severe COPD (GOLD stage 2). He also developed a postoperative empyema following the right lobectomy. ALLERGIES: No known drug allergies. MEDICATIONS: - albuterol 2 puffs every 4 hours - lidocaine 2.5% cream - Spiriva inhalers twice a day SOCIAL HISTORY: He has a 50 pack year history of smoking and chewing tobacco. He lives with his nephew, Freddy, who has accompanied him to this consultation. 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 He was in the [employer] until 1984. FAMILY HISTORY: His mother is alive. His father is secondary to a stroke and he has other brothers who have had esophageal and bladder cancer. REVIEW OF SYSTEMS: The patient primarily complains of severe respiratory distress with shortness of breath upon exertion and coughing a copious amount of sputum. He also has some anorexia and difficulty with his energy level secondary to his shortness of breath. An additional 12 point review of systems was noted to be negative for significant other issues. PHYSICAL EXAMINATION: VITALS: Weight 117.4. Height 5'9. Respirations 26. Pulse 94. Temperature 99. Blood pressure 106/58. Oxygen saturation 93% on room air. HEENT: EOMs intact. Pupils equal and reactive to light and accommodation. Fundi benign. LYMPHATICS: No palpable peripheral lymphadenopathy is appreciated in the cervical, supraclavicular, axillary, or inguinal lymph node chains. LUNGS: Left lung is clear, but hyper resident consistent with COPD. Right lung reveals distant or absent breath sounds in the right lower lobe and right middle portion of the lung vale. There are inspiratory rhonchi audible. HEART: Without murmurs. ABDOMEN: Without evidence of significant hepatomegaly, masses, or deep abdominal tenderness. EXTREMITIES: Without cyanosis, he may have minimal digital clubbing, but no significant edema. NEUROLOGIC EXAMINATION: Grossly physiologic. LABORATORY DATA AND/OR X-RAY FINDINGS: Most recent PET scan obtained reveals increased activity in the proximal tracheal region and activity in the left mainstem bronchus. There is activity noted in the paratracheal region anteriorly and on the right. Radiographically the patient does have evidence of right middle lobe bronchial complete obstruction. A most recent x-ray shows significant clearing of his pneumonia since administration of antibiotic therapy. IMPRESSION: Squamous cell carcinoma originating in the right lower lobe status post lumpectomy. Patient's original stage was noted to be stage IIB and he has received chemotherapy in the form of gemcitabine and carboplatin. Ultimately the patient has progressed and was started on nivolumab, but nonetheless had shown evidence of progressive disease. He has complete obstruction of the right middle lobe bronchus with associated obstructive pneumopathy and pneumonia related to his obstruction. A radiotherapy consultation has been requested to discuss the role of palliative radiotherapy to open up his airways and prevent further complications secondary to obstruction. PLAN OF RADIOTHERAPY: I had a long discussion with the patient and with his nephew who has accompanied him to this consultation. They are willing to try local regional radiotherapy directed to the area of tumor obstruction involving the right hilum and right middle lobe obstruction. He will return to the clinic on Wednesday the November for simulation under the direction of Dr. Sotelo and a treatment plan will be definitively outlined. The indications, possible side effects, and alternatives to radiotherapy have been explained to the patient in detail. These side effects include, but are not necessarily limited to potential radiation induced pneumonitis, dysphagia secondary to radiation induced esophagitis, odynophagia secondary to radiation induced esophagitis, skin erythema, fatigue, and potentially remote radiation fibrosis involving pulmonary parenchyma. He understands and is willing to proceed with radiotherapy as outlined above. Thank you for allowing us the opportunity of participation in the management of this very fine gentleman. Most sincerely. ADDENDUM: I spoke with Dr. Chi who felt immediate radiation to the areas of obstruction was urgent to prevent complications secondary to his obstruction, such as pneumonia and profound dyspnea. He agreed to proceed with simulation on 12/11/2016. (Before, he wanted to wait until 12/14/2016). He was simulated and treated on 12/11/2016. The first treatment will consist of 300 cGy twice a day, to be followed by 300 cGy daily to a total of 3000 cGy. Addendum dictated: Guicho Nolasco MD 12/11/2016 1202 Addendum transcribed: dewayne 12/11/2016 4711
== END ==
LOC: M ONCR 13:02
PROVIDERS: ATTEND Radiology Radiation Oncology
DX: C34.31 Malignant neoplasm of lower lobe, right bronchus or lung (principal)

== ENCOUNTER 2016-12-11 10:35 | Outpatient (RCR) | payer OTHER ==
[~2016-12-11 10:35] MED LIST changes: -ALB2.5NEB INH; -CHLO1.4S2 MT; -CHLORSP MT; -DEXT30SUSP PO; -GUAI5ELAC PO; -LORA1TAB12 PO; -MAPA325T3 PO; -MORP1SOL SL; -ONDA4TAB6 PO; -ROBI30SU PO; -TRAN1.5D2 TD; -VICKLIQ PO
--- NOTE | 2016-12-12 10:09 | RADONC ---
RADIATION ONCOLOGY SIMULATION NOTE: DATE: 12/11/2016 CHART NUMBER: [id number] Mr. 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 The area of the right hilar region and right middle lobe bronchus was contoured at the CT and symmetry workstation. A margin was given of 1 cm around all known tumor (CTV). An immobilization device was created without any difficulty or discomfort. This will be use throughout the course of radiotherapy. I was physical present during the course of CT simulation which proceeded without problems. The patient will initiate treatments today and will be treated twice daily initially and thereafter daily for a total of 10 treatments or approximately 3000 cGy.
--- NOTE | 2016-12-15 07:35 | RADONC ---
RADIATION ONCOLOGY PROGRESS NOTE: DATE: 12/14/2016 CHART NUMBER: [id number] Mr. Noguera is presently at a dose of 900 cGy to his bronchial mass and is tolerating treatments quite well at this point with no complaints related to his radiation therapy. He has had basically no changes at the present time although he says he thinks he is breathing a little better. The patient's review of systems is positive for his cough and shortness of breath as well as overall weakness. His review of systems continues to be positive for the above. He denies nausea, vomiting, fevers, chills, night sweats, diplopia, headaches, anxiety, depression, visual disturbances, bone pain or neurological problems. PHYSICAL EXAMINATION: The patient is a chronically ill, cachectic white male who is presenting in a wheelchair. The skin over the treated field is in excellent condition with no evidence of radiation change present. The remainder of his physical exam remains unchanged as well. ASSESSMENT: The patient is tolerating treatments quite well and radiation will continue as scheduled.
[2016-12-20] MEDS ORDERED: ALB2.5NEB INH (17:39)
[2016-12-20] MEDS ORDERED: VICKLIQ PO (17:39)
[2016-12-20] MEDS ORDERED: CHLO1.4S2 MT (17:39)
[2016-12-20] MEDS ORDERED: ROBI30SU PO (17:39)
--- NOTE | 2016-12-22 07:35 | RADONC ---
RADIATION ONCOLOGY TREATMENT SUMMARY: DATE: 12/21/2016 CHART NUMBER: [id number] DIAGNOSIS: Lung cancer. STAGE: Terminal. ECOG PERFORMANCE STATUS: 4 Mr. Noguera is a 66-year-old white male with the diagnosis of end-stage lung cancer who presented to our department for consideration of palliative radiation therapy in attempt to open up an obstructive bronchus. The patient was treated to that region for a dose of 2100 cGy delivered in seven fractions of 300 cGy each from 12/11/2016 through 12/18/2016. The patient was treated on the linear accelerator utilizing an 18 MV photon beam via anterior and posterior parallel opposed vale. Mr. Noguera continued to deteriorate throughout the course of treatment. We received a phone call today reporting that he will be going onto hospice care and is meeting with the hospice people at this time. His family has requested that we remove him from our treatment schedule and followup visit. Thank you for allowing us to participate in the care of this very unfortunate and pleasant gentleman. If I can provide you with any information, please free to contact me anytime. As always warm regards, cc: Elena Chi MD
== END 2016-12-24 ==
LOC: M ONCR 10:35
PROVIDERS: ATTEND Radiology Radiation Oncology
DX: C34.31 Malignant neoplasm of lower lobe, right bronchus or lung (principal)

== ENCOUNTER → 2016-12-11 | Outpatient (CLI) | payer OTHER | LOC: M RAD 09:08 | PROVIDERS: ATTEND Radiology Radiation Oncology | DX: C34.90 Malignant neoplasm of unspecified part of unspecified bronchus or lung (principal) ==

== ENCOUNTER 2016-12-20 15:08 | Inpatient (IN) | payer OTHER ==
[~2016-12-20] VITALS: Ht 175.3 cm; Wt 52.2 kg
[2016-12-20 15:55] LABS: BASO % 0.1 % (0.0-1.0); EOS # 0.1 K/mm3 (0.0-0.50); EOS % 1.5 % (0.0-3.0); LARGE UNSTAINED CELL # 0.1 K/mm3 (0.0-0.4); LARGE UNSTAINED CELL % 0.8 % (0.0-4.0); LYMPH # 0.4 K/mm3 (1.5-4.5); LYMPH % 4.4 % (24.0-44.0); MEAN CORPUSCULAR HEMOGLOBIN 29.9 pg (27.0-33.0); MEAN CORPUSCULAR HGB CONC 32.2 g/dl (32.0-36.5); MEAN CORPUSCULAR VOLUME 92.9 fl (80.0-96.0); MONO # 0.2 K/mm3 (0.0-0.8); MONO % 2.9 % (0.0-5.0); NEUTROPHILS # 7.3 K/mm3 (1.8-7.7); NEUTROPHILS % 90.3 % (36.0-66.0); PLATELET COUNT, AUTOMATED 213 k/mm3 (150-450); RED CELL DISTRIBUTION WIDTH 15.3 % (11.5-14.5); WHITE BLOOD COUNT 8.1 K/mm3 (4.0-10.0)
[2016-12-20] MEDS: IPRATROPIUM 0.5MG/ALBUTEROL 2.5MG INH SOL UD 3ML (DUONEB)(J7620) NEB PRN ×2 (15:56→16:05)
[2016-12-20] MEDS ORDERED: methylPREDNISolone INJ 125 MG/2 ML VIAL (J2930) IV ONE (16:00)
[2016-12-20 16:16] LABS: INR 0.93
[2016-12-20 16:19] LABS: ALBUMIN 3.3 GM/DL (3.2-5.2); ALKALINE PHOSPHATASE 95 U/L (45-117); ALT/SGPT 37 U/L (12-78); ANION GAP 8 MEQ/L (8-16); AST/SGOT 19 U/L (15-37); BILIRUBIN,DIRECT 0.1 MG/DL (0.0-0.2); BILIRUBIN,TOTAL 0.3 MG/DL (0.2-1.0); BLOOD UREA NITROGEN 13 MG/DL (7-18); CALCIUM LEVEL 8.7 MG/DL (8.8-10.2); CARBON DIOXIDE LEVEL 26 MEQ/L (21-32); CHLORIDE LEVEL 107 MEQ/L (98-107); CREATININE FOR GFR 0.89 MG/DL (0.70-1.30); GLOMERULAR FILTRATION RATE > 60.0 (>49); GLUCOSE, FASTING 104 MG/DL (80-110); MAGNESIUM LEVEL 2.3 MG/DL (1.8-2.4); POTASSIUM SERUM 4.2 MEQ/L (3.5-5.1); SODIUM LEVEL 141 MEQ/L (136-145); THYROXINE (T4) 11.9 UG/DL (4.5-12.0); TOTAL PROTEIN 7.4 GM/DL (6.4-8.2)
[2016-12-20] MEDS ORDERED: ISOVUE-370 76% 100ML VIAL (Q9967) As Ordered ONE (16:24)
[2016-12-20] MEDS ORDERED: CEFTAROLINE FOSAMIL 600 MG in D5W MINI-BAG PLUS 50 ML IV ONE (17:30)
[2016-12-20] MEDS ORDERED: BENZONATATE 100 MG CAP PO ONE (17:30)
--- NOTE | 2016-12-20 17:30 | REPUSA ---
CT angiogram of the chest Clinical statement: Chest pain and shortness of breath. Technique: Multiple axial CT images were obtained from the thoracic inlet through the upper abdomen a fter a bolus administration of nonionic intravenous contrast. Coronal and sagittal reconstructions we re also obtained. Comparison: 12/02/2016. Findings: The pulmonary arteries are well-opacified with contrast, with no intraluminal filling defec ts to suggest embolism. The thoracic aorta is unremarkable. Thyroid gland is within normal limits. Th ere is no thoracic lymphadenopathy. There is infiltrate and consolidation in the right lower lobe, wi th a small right-sided pleural effusion. Scarring and emphysema in the right upper lobe, with parench ymal and pleural thickening, is stable. Limited imaging of the upper abdomen is unremarkable. There a re no suspicious osseous lesions. Impression: 1. No evidence of pulmonary embolism. 2. Stable consolidation and effusion of the right lung base. 3. Stable scarring and pleural thickening in the right lung apex. 4. Overall, no significant interval change.
[2016-12-20] MEDS ORDERED: VICKLIQ PO (17:39)
[2016-12-20] MEDS ORDERED: CHLO1.4S2 MT (17:39)
[2016-12-20] MEDS ORDERED: ROBI30SU PO (17:39)
[2016-12-20] MEDS ORDERED: ALB2.5NEB INH (17:39)
[2016-12-20] MEDS ORDERED: CHLORASEPTIC SPRAY MT PRN (19:00)
[2016-12-20] MEDS ORDERED: ACETAMINOPHEN TAB 650MG DOSE (2X325MG) PO PRN (19:00)
[2016-12-20] MEDS ORDERED: ALBUTEROL 90 MCG/ACT 8GM HFA INHALER INH PRN (19:00)
[2016-12-20] MEDS ORDERED: ONDANSETRON 4 MG ORAL DISINTEGRATING TAB (S0181) PO PRN (19:00)
[2016-12-20] MEDS ORDERED: ONDANSETRON 4MG/2ML VIAL (J2405) IV PRN (19:00)
--- NOTE | 2016-12-20 19:19 | ECGEPIP ---
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
--- NOTE | 2016-12-20 19:42 | HPEPDOC ---
Medical History and Physical Date of Admission Dec 20, 2016 at 18:49 History and Physical HISTORY AND PHYSICAL Date of admission: 12/20/2016 PCP: The [facility] Chief complaint: Increasing cough and shortness of breath HPI: 66-year-old male with squamous cell cancer of the lungs status post right lower lobectomy, COPD, history of empyema, remote history of malaria presented to the emergency department with increasing cough and shortness of breath. The patient had previously received chemotherapy for his lung cancer, but that was stopped approximately one month ago. Subsequently, he has continued to get radiation, and his last treatment was on Wednesday. Patient states that he came to the emergency department today because his cough was just getting so much worse. He denies any fever or sick contacts. In the emergency department, he was initially noted to be satting in the 80s. He expressed to the emergency department physician that he might want hospice. Workup in the ER revealed an afebrile patient with a normal white count and normal lactate. CTA of the chest showed no evidence of PE, as well as stable right lung base consolidation and effusion that was grossly unchanged from prior imaging. Upon my discussion with the patient, he told me that he is ready to be kept comfortable and he does not wish to pursue further medical interventions. He wants to stop the radiation. He tells me that he knows that the end is getting very near. He has named his nephew, Freddy, as his healthcare proxy, and I was able to speak to Freddy on the phone. Freddy also tells me that he thinks his uncle has reached a point where he wants to be kept comfortable. The patient and Freddy were able to converse, and after their discussion, the patient told me that he did not want any more antibiotics, steroids, or any medicines that weren't aimed at keeping him comfortable. He told me that he would like help in arranging hospice. Past medical history: squamous cell cancer of the lungs status post right lower lobectomy, COPD, history of empyema, remote history of malaria Past surgical history: Right lower lobectomy Family history: His mother recently of old age. His father of a stroke. He has both a brother and a sister who from heart disease. He has other brothers who have had esophageal and bladder carcinoma. Social history: The patient currently lives with his nephew Freddymaryam Noguera who is his healthcare proxy. He quit smoking approximately 3 months ago, and quit drinking any alcohol about one month ago. He was in the [employer] from 1968- 1970 and was exposed to agent or range. 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 Allergies: Chlorpheniramine, hydrocodone Review of systems: General: Negative for fever and chills Eyes: Negative for vision changes and ocular discharge ENT: Positive for sore throat, negative for nose bleed Cardiovascular: Negative for chest pain and palpitations Respiratory: Positive for cough and shortness of breath. Negative for hemoptysis GI: Negative for nausea, vomiting, diarrhea, constipation Musculoskeletal: Negative for neck and back pain Skin: Negative for rash Neuro: Negative for headache, dizziness, numbness, tingling Psych: Negative for suicidal ideation and depression Endocrine: Negative for polyuria : Negative for dysuria Heme: Negative for bleeding Home meds: See below Physical exam: Vital signs: Vital Sign - Last 24 Hours 12/20/16 12/20/16 12/20/16 12/20/16 15:12 15:26 15:58 16:06 Pulse 110 121 Resp 24 26 B/P (MAP) 128/85 (99) Pulse Ox 94 O2 Delivery Nasal Cannula Room Air O2 Flow Rate 4.0 12/20/16 12/20/16 12/20/16 12/20/16 17:23 17:38 17:53 18:08 Pulse 114 116 116 124 B/P (MAP) 134/82 (99) Pulse Ox 93 94 95 94 12/20/16 12/20/16 12/20/16 18:23 18:38 18:53 Pulse 116 116 114 Pulse Ox 96 95 95 Gen.: awake, alert, no acute distress, very cachectic Eyes: Extraocular movements intact, normal sclera ENT: Moist mucous membranes Cardiovascular: Tachycardic but regular Lungs: Very coarse with rhonchi in all lung vale but particularly the right upper lung field Abdomen: Soft, NT/ND, normal BS Musculoskeletal: normal range of motion Extremities: No peripheral edema Neuro: alert and oriented 3, normal speech, no focal deficits Psych: Normal mood with congruent affect Labs and radiology: See below CBC, CMP, coags, troponin, lactate, BNP, TSH are unremarkable CRP is mildly elevated at 1.77 Blood cultures are pending CTA of the chest shows no evidence of PE as well as a stable right lung base consolidation and effusion that is grossly unchanged from prior imaging Assessment and plan: 66-year-old male with squamous cell cancer of the lungs status post right lower lobectomy, COPD, history of empyema, remote history of malaria presented to the emergency department with increasing cough and shortness of breath. Workup in the ER does not reveal anything that would appear to be an infectious pneumonia. Most likely this represents a radiation pneumonitis. The patient and I, as well as his healthcare proxy Freddy Noguera, has had thorough discussion, and at this time the patient desires to pursue comfort measures only. He would like help arranging hospice. We will admit him to the hospital on AVIATION ELECTRICIAN status, and in the morning we will have patient family services and case management work on arranging hospice for him. He tells me that at home he has been having a liquid diet secondary to his difficulty swallowing, so we will order a liquid diet for him at this time. Dispo: admit as inpatient on AVIATION ELECTRICIAN status to the service of Dr. Hauser CODE STATUS: AVIATION ELECTRICIAN, DNR/DNI Vital Signs Vital Signs Date Time Temp Pulse Resp B/P (MAP) Pulse Ox O2 Delivery O2 Flow Rate FiO2 12/20/16 18:53 114 95 12/20/16 17:23 134/82 (99) 12/20/16 16:06 26 12/20/16 15:58 Room Air 12/20/16 15:12 4.0 Laboratory Data Labs 24H Laboratory Tests 2 12/20/16 15:42: White Blood Count 8.1, Red Blood Count 4.59, Hemoglobin 13.7L, Hematocrit 42.6, Mean Corpuscular Volume 92.9, Mean Corpuscular Hemoglobin 29.9, Mean Corpuscular Hemoglobin Concent 32.2, Red Cell Distribution Width 15.3H, Platelet Count 213, Neutrophils (%) (Auto) 90.3H, Lymphocytes (%) (Auto) 4.4L, Monocytes (%) (Auto) 2.9, Eosinophils (%) (Auto) 1.5, Basophils (%) (Auto) 0.1, Neutrophils # (Auto) 7.3, Lymphocytes # (Auto) 0.4L, Monocytes # (Auto) 0.2, Eosinophils # (Auto) 0.1, Basophils # (Auto) 0.0, Large Unclassified Cells % 0.8 , Large Unclassified Cells # 0.1, Prothrombin Time 12.5, Prothromb Time International Ratio 0.93, Anion Gap 8, Glomerular Filtration Rate > 60.0, Lactic Acid Level 1.6, Calcium Level 8.7L, Magnesium Level 2.3, Aspartate Amino Transf (AST/SGOT) 19, Alanine Aminotransferase (ALT/SGPT) 37, Alkaline Phosphatase 95, Total Bilirubin 0.3, Direct Bilirubin 0.1, Total Creatine Kinase 64, Creatine Kinase MB 2.8, Creatine Kinase MB Relative Index 4.37H, Troponin I < 0.02, C-Reactive Protein, Quantitative 1.77H, B-Type Natriuretic Peptide 41.5, Total Protein 7.4, Albumin 3.3, Albumin/Globulin Ratio 0.80L, Thyroid Stimulating Hormone (TSH) 0.625, Thyroxine (T4) 11.9 CBC/BMP Laboratory Tests 12/20/16 15:42 Red Blood Count 4.59, Mean Corpuscular Volume 92.9, Mean Corpuscular Hemoglobin 29.9, Mean Corpuscular Hemoglobin Concent 32.2, Red Cell Distribution Width 15.3 H, Neutrophils (%) (Auto) 90.3 H, Lymphocytes (%) (Auto) 4.4 L, Monocytes ( %) (Auto) 2.9, Eosinophils (%) (Auto) 1.5, Basophils (%) (Auto) 0.1, Neutrophils # (Auto) 7.3, Lymphocytes # (Auto) 0.4 L, Monocytes # (Auto) 0.2, Eosinophils # (Auto) 0.1, Basophils # (Auto) 0.0 Microbiology Microbiology 12/20/16 Blood Culture, Received Pending 12/20/16 Blood Culture, Received Pending Home Medications Scheduled (Lidocaine/Prilocaine 2.5-2.5 %) 1 Cre Cre, 1 CRE EXT ASDIRECTED PUTS ON PORT BEFORE CHEMO Tiotropium [place] Monohydrate (Spiriva Respimat) 2.5 Mcg/Act Spr, 2 INHALATION INH BID Scheduled PRN (Chloraseptic) 1.4 % Spr, 1 SPRAY MT for COUGH (Robitussin 12 Hour Cough) 30 Mg/5 Ml Autumn, 30 MG PO for COUGH Albuterol Sulfate (Proair Hfa) 108 Mcg/Act Aer, 2 PUFF INH Q4H PRN for SHORTNESS OF BREATH Albuterol Sulfate (Albuterol Sulfate) 2.5 Mg/0.5 Ml Neb, 2.5 MG INH Q4H PRN for SHORTNESS OF BREATH Allergies Coded Allergies: Hydrocodone (Unverified Allergy, Intermediate, SOB, BURNED THROAT, 12/02/16) Chlorpheniramine (Unverified Adverse Reaction, Intermediate, SOB, BURNED THROAT, 12/20/16) LEONILA SAHU Dec 20, 2016 19:42
[2016-12-20] MEDS: ALBUTEROL SULFATE 2.5 MG/0.5 ML INH NEB SOLN INH PRN (20:45)
[2016-12-20] MEDS: DEXTROMETHORPHAN 60MG/10ML SUSP 90ML BTL(DELSYM) PO PRN (21:02)
[2016-12-21] MEDS: ALBUTEROL SULFATE 2.5 MG/0.5 ML INH NEB SOLN INH PRN ×6 (07:19→23:23)
--- NOTE | 2016-12-21 08:15 | REP ---
CHEST, TWO VIEWS: HISTORY: Cough. COMPARISON: 12/09/2016. There is loss of volume in the right hemithorax with elevation of the right hemidiaphragm. Increased density is present in the right middle lobe. This is consistent with atelectasis or infiltrate. There is a hyperinflation of the left lung. The heart is normal in size. The pulmonary vasculature is normal in appearance. The bony structure is intact. An Entafj-R-[id number] catheter is present in the superior vena cava. IMPRESSION: There is loss of volume in the right hemithorax with increased density in the right lower lung consistent with atelectasis of infiltrate. Signed by Guicho La MD 12/21/2016 08:17 A
--- NOTE | 2016-12-21 13:01 | IPNPDOC ---
Subjective Date Seen The patient was seen on 12/21/16. Subjective Chief Complaint/HPI Patient seen and examined at the bedside. States that he would like to continue with comfort measures only at this time. Notes that he is waiting to speak with hospice for further delineation of options. Objective Physical Examination General Exam: Positive: Alert, Cooperative, No Acute Distress, Other ( cachectic appearing with bitemporal wasting) ENT Exam: Positive: Atraumatic, Mucous membr. 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 Hospice consulted, awaiting their input. PFS on board VS, I&O, 24H, [facility] Vital Signs/I&O Vital Signs Date Time Temp Pulse Resp B/P (MAP) Pulse Ox O2 Delivery O2 Flow Rate FiO2 12/20/16 20:27 Nasal Cannula 2.0 12/20/16 19:53 120 95 12/20/16 17:23 134/82 (99) 12/20/16 16:06 26 I&O- Last 24 Hours up to 6 AM 12/21/16 06:00 Intake Total 410 ml Output Total 225 ml Balance 185 ml Laboratory Data 24H LABS Laboratory Tests 2 12/20/16 15:42: White Blood Count 8.1, Red Blood Count 4.59, Hemoglobin 13.7L, Hematocrit 42.6, Mean Corpuscular Volume 92.9, Mean Corpuscular Hemoglobin 29.9, Mean Corpuscular Hemoglobin Concent 32.2, Red Cell Distribution Width 15.3H, Platelet Count 213, Neutrophils (%) (Auto) 90.3H, Lymphocytes (%) (Auto) 4.4L, Monocytes (%) (Auto) 2.9, Eosinophils (%) (Auto) 1.5, Basophils (%) (Auto) 0.1, Neutrophils # (Auto) 7.3, Lymphocytes # (Auto) 0.4L, Monocytes # (Auto) 0.2, Eosinophils # (Auto) 0.1, Basophils # (Auto) 0.0, Large Unclassified Cells % 0.8 , Large Unclassified Cells # 0.1, Prothrombin Time 12.5, Prothromb Time International Ratio 0.93, Anion Gap 8, Glomerular Filtration Rate > 60.0, Lactic Acid Level 1.6, Calcium Level 8.7L, Magnesium Level 2.3, Aspartate Amino Transf (AST/SGOT) 19, Alanine Aminotransferase (ALT/SGPT) 37, Alkaline Phosphatase 95, Total Bilirubin 0.3, Direct Bilirubin 0.1, Total Creatine Kinase 64, Creatine Kinase MB 2.8, Creatine Kinase MB Relative Index 4.37H, Troponin I < 0.02, C-Reactive Protein, Quantitative 1.77H, B-Type Natriuretic Peptide 41.5, Total Protein 7.4, Albumin 3.3, Albumin/Globulin Ratio 0.80L, Thyroid Stimulating Hormone (TSH) 0.625, Thyroxine (T4) 11.9 CBC/BMP Laboratory Tests 12/20/16 15:42 Red Blood Count 4.59, Mean Corpuscular Volume 92.9, Mean Corpuscular Hemoglobin 29.9, Mean Corpuscular Hemoglobin Concent 32.2, Red Cell Distribution Width 15.3 H, Neutrophils (%) (Auto) 90.3 H, Lymphocytes (%) (Auto) 4.4 L, Monocytes ( %) (Auto) 2.9, Eosinophils (%) (Auto) 1.5, Basophils (%) (Auto) 0.1, Neutrophils # (Auto) 7.3, Lymphocytes # (Auto) 0.4 L, Monocytes # (Auto) 0.2, Eosinophils # (Auto) 0.1, Basophils # (Auto) 0.0 Microbiology Microbiology 12/20/16 Blood Culture, Received Pending 12/20/16 Blood Culture, Received Pending KRISTEN MCFARLAND MD Dec 21, 2016 13:01
[2016-12-22] MEDS: ALBUTEROL SULFATE 2.5 MG/0.5 ML INH NEB SOLN INH PRN ×6 (03:35→23:09)
[2016-12-22] MEDS ORDERED: ALBUTEROL INH PRN (14:00)
--- NOTE | 2016-12-22 15:09 | IPN ---
DATE: 12/22/2016 SUBJECTIVE: The patient seen and examined in the room today. The patient still has some shortness of breath and patient is requesting his home breathing inhaler treatments. Otherwise, denies any acute changes. The patient had a discussion with hospice services. Currently, we are still looking for hospice facilities. No overnight events reported. OBJECTIVE: GENERAL: No sign of acute distress. Alert, oriented times three. HEENT: Normocephalic atraumatic. Extraocular muscles are grossly intact. CARDIOVASCULAR: Positive S2, S2. Regular rate. LUNGS: Very diminished breath sounds. There is intermittent wheezes. ABDOMEN: Soft, nontender, nondistended. EXTREMITIES: No edema. No cyanosis. ASSESSMENT/PLAN: 1. History of recurrent squamous cell carcinoma of the right lower lobe, status post resection and chemotherapy. Acute on chronic hypoxic failure secondary to progression of the squamous cell of the lung. 2. Severe chronic obstructive pulmonary disease (COPD). 3. Remote history of malaria. 4. 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 Hospice services consulted. The patient had a discussion with hospice staff. Currently, we are still trying to find arrangements for disposition. [facility]ITAL[facility]
[2016-12-23] MEDS: ALBUTEROL SULFATE 2.5 MG/0.5 ML INH NEB SOLN INH PRN ×6 (03:33→23:22)
--- NOTE | 2016-12-23 14:59 | IPN ---
DATE: 12/23/2016 SUBJECTIVE: The patient is seen in the room today. The patient is still sitting on the chair. He stated that his respiratory status remained the same. He appears to have an intermittent cough. Still requiring oxygen support. No overnight events reported. OBJECTIVE: GENERAL: No sign of acute distress. Alert and oriented times three. HEENT: Normocephalic atraumatic. CARDIOVASCULAR: Positive S1, S2 regular rate. LUNGS: Very diminished breath sounds. Intermittent wheezes. ABDOMEN: Soft, nontender. EXTREMITIES: No edema. No cyanosis. ASSESSMENT/PLAN: 1. Recurrent squamous cell carcinoma of the right lower lobe, status post resection and chemotherapy. 2. Acute on chronic hypoxic respiratory failure secondary to progression of the squamous cell lung cancer. 3. Severe chronic obstructive pulmonary disease (COPD). 4. Remote history of malaria. PLAN: The patient is on comfort measures only. Currently looking for hospice placement for the patient. No confirmed assignment at this moment. The patient will continued under hospice medication. The patient can use his own inhaler as needed.
[2016-12-23] MEDS: IPRATROPIUM 0.5MG/ALBUTEROL 2.5MG INH SOL UD 3ML (DUONEB)(J7620) NEB PRN (19:44)
[2016-12-24] MEDS: MORPHINE 10MG/0.5ML ORAL CONCENTRATE SOLUTION U/D SL PRN ×4 (00:01→23:12)
[2016-12-24] MEDS: ALBUTEROL SULFATE 2.5 MG/0.5 ML INH NEB SOLN INH PRN ×6 (03:49→23:39)
[2016-12-25] MEDS: LORazepam 1 MG TAB PO PRN ×2 (02:12→19:51)
[2016-12-25] MEDS: ALBUTEROL SULFATE 2.5 MG/0.5 ML INH NEB SOLN INH PRN ×6 (04:09→20:18)
[2016-12-25] MEDS: MORPHINE 10MG/0.5ML ORAL CONCENTRATE SOLUTION U/D SL PRN ×2 (08:09→15:16)
--- NOTE | 2016-12-25 09:16 | IPN ---
DATE: 12/24/2016 SUBJECTIVE: The patient is seen and examined in the room today. The patient is sitting comfortably in chair. Still requiring two liters nasal cannula to maintain satisfactory oxygen saturations. Still has intermittent cough and intermittent wheezes. No events reported. OBJECTIVE: GENERAL: No sign of acute distress. Alert and oriented times three. HEENT: Normocephalic atraumatic. Extraocular motor grossly intact. CARDIOVASCULAR: Positive S1, S2 regular rate. LUNGS: Very diminished breath sounds. I can her the wheezes throughout. No crackles. ABDOMEN: Soft, nontender, nondistended. EXTREMITIES: No edema. No cyanosis. ASSESSMENT AND PLAN: 1. Recurrent squamous cell carcinoma, status post resection and chemotherapy. 2. Acute on chronic hypoxic respiratory failure, secondary to progression of squamous cell lung cancer. 3. Severe chronic obstructive pulmonary disease (COPD). 4. Remote history of malaria. PLAN: The patient is currently on comfort measures only. social services analyst has been assisting to help with placement. However, currently it may require some time to find appropriate placement for the patient. The estimated earliest time will be next week. Therefore, the patient will transition to the alternate level of care (ALC) status.
[2016-12-25] MEDS: DEXTROMETHORPHAN 60MG/10ML SUSP 90ML BTL(DELSYM) PO PRN (18:51)
[2016-12-25 23:50] VITALS: BP 117/76
[2016-12-26] MEDS: LORazepam 1 MG TAB PO PRN ×3 (00:39→11:08)
[2016-12-26] MEDS: MORPHINE 10MG/0.5ML ORAL CONCENTRATE SOLUTION U/D SL PRN ×3 (01:07→11:09)
[2016-12-26] MEDS: ALBUTEROL SULFATE 2.5 MG/0.5 ML INH NEB SOLN INH PRN ×6 (01:25→23:53)
[2016-12-27] MEDS: MORPHINE 10MG/0.5ML ORAL CONCENTRATE SOLUTION U/D SL PRN ×3 (06:37→18:22)
[2016-12-27] MEDS: ALBUTEROL SULFATE 2.5 MG/0.5 ML INH NEB SOLN INH PRN ×3 (07:11→18:25)
[2016-12-27] MEDS: LORazepam 1 MG TAB PO PRN ×2 (11:42→18:22)
[2016-12-28] MEDS: LORazepam 1 MG TAB PO PRN ×2 (01:44→11:09)
[2016-12-28] MEDS: MORPHINE 10MG/0.5ML ORAL CONCENTRATE SOLUTION U/D SL PRN ×2 (01:45→09:04)
[2016-12-28] MEDS: ALBUTEROL SULFATE 2.5 MG/0.5 ML INH NEB SOLN INH PRN ×2 (01:48→07:14)
[2016-12-28] MEDS: DEXTROMETHORPHAN 60MG/10ML SUSP 90ML BTL(DELSYM) PO PRN (11:10)
[2016-12-28] MEDS: SCOPOLAMINE 1.5 MG TRANSDERMAL TD PRN (11:10)
[2016-12-29] MEDS: ALBUTEROL SULFATE 2.5 MG/0.5 ML INH NEB SOLN INH PRN ×2 (00:25→03:30)
[2016-12-29] MEDS: LORazepam 1 MG TAB PO PRN ×2 (01:46→03:42)
[2016-12-29] MEDS: MORPHINE 10MG/0.5ML ORAL CONCENTRATE SOLUTION U/D SL PRN ×3 (01:46→14:52)
[2016-12-29 04:12] VITALS: BP 117/76
[2016-12-29] MEDS ORDERED: IPRATROPIUM 0.5MG/ALBUTEROL 2.5MG INH SOL UD 3ML (DUONEB)(J7620) NEB ONE (05:45)
[2016-12-29] MEDS: DEXTROMETHORPHAN 60MG/10ML SUSP 90ML BTL(DELSYM) PO PRN ×2 (14:52→20:54)
[2016-12-30] MEDS: DEXTROMETHORPHAN 60MG/10ML SUSP 90ML BTL(DELSYM) PO PRN (04:01)
[2016-12-30] MEDS: ALBUTEROL SULFATE 2.5 MG/0.5 ML INH NEB SOLN INH PRN ×3 (06:00→21:59)
[2016-12-30] MEDS: LORazepam 1 MG TAB PO PRN ×2 (06:14→23:39)
[2016-12-30] MEDS: MORPHINE 10MG/0.5ML ORAL CONCENTRATE SOLUTION U/D SL PRN (23:39)
[2016-12-31] MEDS: LORazepam 1 MG TAB PO PRN ×2 (01:42→05:22)
[2016-12-31] MEDS: MORPHINE 10MG/0.5ML ORAL CONCENTRATE SOLUTION U/D SL PRN (05:29)
[2016-12-31] MEDS: ALBUTEROL SULFATE 2.5 MG/0.5 ML INH NEB SOLN INH PRN (21:08)
[2017-01-01] MEDS: ALBUTEROL SULFATE 2.5 MG/0.5 ML INH NEB SOLN INH PRN ×4 (01:26→19:21)
[2017-01-01] MEDS: DEXTROMETHORPHAN 60MG/10ML SUSP 90ML BTL(DELSYM) PO PRN ×2 (10:21→23:15)
[2017-01-01] MEDS: MORPHINE 10MG/0.5ML ORAL CONCENTRATE SOLUTION U/D SL PRN ×2 (10:21→23:11)
[2017-01-01] MEDS ORDERED: TRAN1.5D2 TD (12:12)
[2017-01-01] MEDS ORDERED: ALB2.5NEB INH (12:12)
[2017-01-01] MEDS ORDERED: MORP1SOL SL (12:12)
[2017-01-01] MEDS ORDERED: LORA1TAB12 PO (12:12)
[2017-01-01] MEDS ORDERED: CHLORSP MT (12:12)
[2017-01-01] MEDS ORDERED: MAPA325T3 PO (12:12)
[2017-01-01] MEDS ORDERED: DEXT30SUSP PO (12:12)
[2017-01-01] MEDS ORDERED: ONDA4TAB6 PO (12:12)
--- NOTE | 2017-01-01 13:11 | IPN ---
DATE: 01/01/2017 Patient seen and examined at bedside. Chart has been reviewed. According to nursing, patient has been offered pain medications. He appears to be comfortable, saturation well. Still has an intermittent cough, occasional wheezing. Tolerating his nebulizers and supplemental oxygen. He has had decrease in appetite. No weight loss. Not interested in supplements such as Ensure of Boost. He has no complaints of nausea, vomiting, abdominal pain, diarrhea. Has chronic shortness of breath. No chest pain, pressure or tightness, lightheadedness or dizziness this morning, still requiring 2 liters of oxygen. Vital signs: Afebrile, pulse 117 tachycardic, blood pressure 117/76, respiratory rate of 20, pulse ox 6 liters of oxygen, 90% saturation. Generally, patient appears cachectic, older than her stated age with muscle wasting. Mild respiratory distress. No nasal flaring. Trachea deviation. No use of respiratory accessory muscles. Pupils are round and reactive. Extraocular muscles are intact. Normocephalic, atraumatic. No jugular venous distention, thyromegaly, cervical lymphadenopathy. Lungs are diminished. Bilateral expiratory wheezing. No crackles. Abdomen is soft, nontender, nondistended, positive bowel sounds times four quadrants. No hepatosplenomegaly. Extremities: Muscle wasting. No pitting edema. No cyanosis or clubbing. Skin: Hunter, warm, dry, well perfused. Hunter in color. LABORATORY DATA 12/20: CBC, metabolic panel, comprehensive panel have been reviewed. ASSESSMENT AND PLAN: This is a 66-year-old male with history of squamous cell lung CA status post right lower lobectomy, chronic obstructive pulmonary disease (COPD), empyema, malaria, who presented to the ER with worsening shortness of breath, previously received chemotherapy which was discontinued a month ago as well as radiation last Wednesday. The patient has an increasing cough. He was found to be afebrile. CTA of the chest showed no pulmonary embolus (PE) with stable right lung base consolidation and effusion unchanged from prior exam. According to the patient's family, he was being comfort measures only at home. Patient was admitted for hospice comfort measures only. During the admission, patient has had no significant issues, he remains dependent on oxygen and has been given as needed Roxanol intermittent, still awaiting a bed at the [facility]. CURRENT ISSUES: Recurrent squamous cell lung cancer status post resection, chemotherapy and radiation. Currently comfort measures, DO NOT RESUSCITATE, DO NOT INTUBATE. Acute on chronic hypoxic respiratory failure on supplemental oxygen, currently at 6 liters of oxygen due to progression of his squamous cell lung cancer, severe chronic obstructive pulmonary disease (COPD) on home oxygen, nebulizer treatments, remote history of malaria. DISPOSITION: Awaiting placement at [facility]. Patient has been kept under comfort measures only with as needed Roxanol, Ativan, Zofran, nebulizer treatments and dextromethorphan.
[2017-01-01] MEDS: LORazepam 1 MG TAB PO PRN (23:11)
[2017-01-02] MEDS: SCOPOLAMINE 1.5 MG TRANSDERMAL TD PRN (00:13)
[2017-01-02] MEDS: LORazepam 1 MG TAB PO PRN ×2 (05:30→22:14)
[2017-01-02] MEDS: MORPHINE 10MG/0.5ML ORAL CONCENTRATE SOLUTION U/D SL PRN ×2 (05:30→22:15)
[2017-01-02] MEDS: ALBUTEROL SULFATE 2.5 MG/0.5 ML INH NEB SOLN INH PRN ×3 (08:28→22:47)
[2017-01-02] MEDS: DEXTROMETHORPHAN 60MG/10ML SUSP 90ML BTL(DELSYM) PO PRN (22:18)
[2017-01-03] MEDS: ALBUTEROL SULFATE 2.5 MG/0.5 ML INH NEB SOLN INH PRN ×3 (07:04→21:28)
[2017-01-03] MEDS: MORPHINE 10MG/0.5ML ORAL CONCENTRATE SOLUTION U/D SL PRN ×2 (17:58→21:18)
[2017-01-04] MEDS: MORPHINE 10MG/0.5ML ORAL CONCENTRATE SOLUTION U/D SL PRN ×3 (03:37→20:14)
[2017-01-04] MEDS: DEXTROMETHORPHAN 60MG/10ML SUSP 90ML BTL(DELSYM) PO PRN (10:35)
[2017-01-04] MEDS: ALBUTEROL SULFATE 2.5 MG/0.5 ML INH NEB SOLN INH PRN ×2 (10:45→19:31)
[2017-01-04] MEDS: LORazepam 1 MG TAB PO PRN (20:29)
[2017-01-05] MEDS: LORazepam 1 MG TAB PO PRN ×2 (02:46→18:58)
[2017-01-05] MEDS: DEXTROMETHORPHAN 60MG/10ML SUSP 90ML BTL(DELSYM) PO PRN ×3 (02:46→18:56)
[2017-01-05] MEDS: ALBUTEROL SULFATE 2.5 MG/0.5 ML INH NEB SOLN INH PRN ×3 (07:34→19:12)
[2017-01-05] MEDS: MORPHINE 10MG/0.5ML ORAL CONCENTRATE SOLUTION U/D SL PRN (18:56)
[2017-01-06] MEDS: DEXTROMETHORPHAN 60MG/10ML SUSP 90ML BTL(DELSYM) PO PRN (01:56)
[2017-01-06] MEDS: MORPHINE 10MG/0.5ML ORAL CONCENTRATE SOLUTION U/D SL PRN ×2 (01:56→12:44)
[2017-01-06] MEDS: ALBUTEROL SULFATE 2.5 MG/0.5 ML INH NEB SOLN INH PRN ×3 (07:11→19:56)
[2017-01-06] MEDS: guaiFENesin/CODEINE SYRUP 5 ML UDC PO PRN ×3 (10:48→22:37)
[2017-01-06] MEDS: LORazepam 1 MG TAB PO PRN (12:42)
[2017-01-06] MEDS: SCOPOLAMINE 1.5 MG TRANSDERMAL TD PRN (12:43)
[2017-01-06] MEDS ORDERED: GUAI5ELAC PO (14:31)
[2017-01-07] MEDS: LORazepam 1 MG TAB PO PRN (02:15)
[2017-01-07] MEDS: MORPHINE 10MG/0.5ML ORAL CONCENTRATE SOLUTION U/D SL PRN (02:15)
--- NOTE | 2017-01-07 13:31 | DSES ---
DATE OF ADMISSION: 12/20/2016 DATE OF DISCHARGE: 01/07/2017 ATTENDING PHYSICIANS: MD Luis Carlos Lozano MD Yu Sung, DO Joan Guevarra, MD DICTATED BY: Krystin Eaton MD PRIMARY CARE PHYSICIAN: [facility]. REFERRING PHYSICIAN: None. CONSULTING PHYSICIANS: None. CONDITION ON DISCHARGE: Guarded. FINAL DIAGNOSIS: Recurrent squamous cell lung carcinoma status post resection, chemotherapy, and radiation. Patient was made comfort measures only (BEATER HEAD). PROCEDURES: None. HISTORY OF PRESENT ILLNESS: Patient is a 66-year-old male with a past medical history of squamous cell cancer to the lung, status post right lower lobectomy, chronic obstructive pulmonary disease (COPD), history of emphysema, remote history of malaria, who presented to the emergency room (ER) with complaints of increasing shortness of breath and cough. The patient had previously received chemotherapy for his lung cancer, but it stopped one month prior to arrival. He is continuing to get radiation. The patient presented to the ER because he stated that his cough was just getting much more worse. Denies any fever or sick contact. The patient's saturation was in the 80s upon presentation to the emergency room. HOSPITAL COURSE: The patient was admitted for recurrent squamous cell cancer of the lung status post lobectomy, chemotherapy and radiation. Discussion was had with the patient and the patient's son, Freddy Garcia. The patient had desired to pursue comfort measures only (BEATER HEAD) and was made BEATER HEAD and hospice was consulted upon admission. The patient was made comfort measures throughout the hospital course and had finally been accepted to the hospital under comfort measures. DISCHARGE MEDICATIONS: - acetaminophen 650 mg by mouth every 4 hours as needed for mild pain - albuterol sulfate 2.5 mg inhaled every 4 hours as needed for shortness of breath - guaifenesin/codeine 5 mL by mouth every 4 hours as needed cough - lorazepam 1 mg by mouth every 2 hours as needed anxiety - morphine sulfate 5 mg sublingual every 2 hours as needed for severe pain - Zofran 4 mg by mouth every 6 hours as needed for nausea - phenol one spray by mouth every 1 hour as needed for cough - scopolamine 1.5 mg transdermally every 3 days as needed for excessive secretions - lidocaine/prilocaine cream to be applied as directed - Spiriva two puffs inhaled twice a day DISCHARGE INSTRUCTIONS: Patient is a DO NOT RESUSCITATE, DO NOT INTUBATE, comfort measures only (BEATER HEAD). Patient was advised to return to the hospital if his pain remains uncontrolled. Time spent on discharge greater than 35 minutes.
== END 2017-01-07 10:19 | disposition hospice, inpatient (51) | DRG 180 ==
LOC: EDBD 15:08 → M ED 15:08 → M ED INP 18:49 → M MSPAV 20:10
PROVIDERS: ADMIT Hospitalist; ATTEND Internal Medicine
DX: C34.31 Malignant neoplasm of lower lobe, right bronchus or lung (principal); J96.21 Acute and chronic respiratory failure with hypoxia; J70.0 Acute pulmonary manifestations due to radiation; J44.9 Chronic obstructive pulmonary disease, unspecified; Z92.21 Personal history of antineoplastic chemotherapy; Z92.3 Personal history of irradiation; Z51.5 Encounter for palliative care; Z79.899 Other long term (current) drug therapy; Z66 Do not resuscitate; Z90.2 Acquired absence of lung [part of]; Z88.8 Allergy status to other drugs, medicaments and biological substances; Z88.5 Allergy status to narcotic agent; Z87.891 Personal history of nicotine dependence